=== PATIENT | male | born 1955 | race Caucasian/White ===

== ENCOUNTER 2025-05-08 10:52 | Outpatient (AMB) | payer OTHER, SELFPAY ==
--- NOTE | 2025-05-08 11:02 | A.OFFVIS_ITS ---
Intake Visit Reasons: Neural Foraminal Allergies No Known Allergies Allergy (Verified 05/03/25 08:33) HPI Comments Details: The patient is a 69-year-old male presenting with persistent pain and numbness in the right hip and leg following a fall a year ago. Following the incident, he experienced acute trauma resulting in musculoskeletal pain, swelling of the knee, and numbness on the outer part of the leg. Despite cortisone injections administered to reduce the pain and inflammation, he continues to have residual symptoms in the knee and hip. x-rays have shown degenerative changes in the knee and hip, suggestive of chronic arthritis. The patient has a history of knee swelling relieved by cortisone, and prior MRI imaging did not reveal significant nerve issues, although nerve involvement was suspected. These symptoms primarily manifest if he is in an incorrect position, risking further swelling and discomfort. The patient?s recent falls, although not recurrent, are a concern due to leg instability. He denies any radiating pain down the leg, emphasizing a localized painful area at the top of the hip. [facility] Family History (Updated 05/03/25 @ 08:33 by Ben Mendoza CMA) Father Nicotine dependence Heart failure Diabetes mellitus Mother Hypertension Son Asthma Diabetes mellitus Social History (Updated 05/03/25 @ 08:30 by Ben Mendoza CMA) Alcohol intake: never Patient Tobacco Use Status: Never used Tobacco Use of substances other than those prescribed or required for medical reasons: No Review of Systems Const Details: - Musculoskeletal: Reports right-sided lower back pain, knee swelling, hip discomfort, and occasional leg instability. - Neurological: Reports numbness on the outer side of the right leg. Denies radiating pain. - General: Denies recent falls, though had occurrences near the onset of symptoms. Physical Exam Neuro Other: Mental Status: Alert and oriented to person, place, and time. Normal attention. Normal spontaneous speech, fluency, and comprehension. No obvious issues with mood and memory. Affect is appropriate. Cranial Nerves: CN II: Visual deleon full to confrontation, visual acuity intact. CN III, IV, : Pupils equal, round, reactive to light and accommodation. Extraocular movements are normal. CN V: Facial sensation is normal. CN VII: Facial movements symmetrical. CN VIII: Hearing intact to bedside conversation is normal. CN IX, X: Palate elevates symmetrically. CN XI: Shoulder shrug and head turn symmetrical. CN XII: Tongue midline without atrophy or fasciculations. Deep tendon reflexes are absent. He is walking cautiously with a cane. Extrapyramidal: Full facial expressions and blinking. No rigidity. Movements are appropriate with no tremor or abnormality. Speech: Normal; no dysarthria or tremor. Assessment & Plan Assessment & Plan (1) Low back pain: Comment: MR LS spine WO at [facility] in Oct 2024: DJD XR R knee and hip at [facility] in 2023: No sig pathology reported Code(s): M54.50 - Low back pain, unspecified Category: Medical Qualifiers: Chronicity: chronic Back pain laterality: right Sciatica presence: without sciatica Qualified Code(s): M54.50 - Low back pain, unspecified; G89.29 - Other chronic pain Plan Impression: Musculoskeletal right hip area and knee area pain with sometimes leg giving away Rec: Education of the condition EMG/NCS R leg to r/o radiculapathy He was educated about problem with joints especially right hip and knee joint that might have started after he fell and twisted these joints. Sometime mild pathology is not visible on imaging. He has been getting injection treatment for right knee joint. Hip pain continuous though it is not continuous and maybe not that bad. He was more concerned about neurological problem. His examination revealed absent reflexes that may or may not be directly contributing to this problem. An EMG nerve conduction study was requested to look at his peripheral nerves and especially rule out radiculopathy Orders: Orders NE nerve conduction velocity Today G89.29 - Other chronic pain, M54.50 - Low back pain, unspecified NE electromyogram (EMG) Today G89.29 - Other chronic pain, M54.50 - Low back pain, unspecified Coding Level of Care Code New Pt Level 4 (89054) Diagnoses Chronic right-sided low back pain without sciatica M54.50; G89.29 Chronicity: chronic Back pain laterality: right Sciatica presence: without sciatica
--- OUTSIDE RECORDS SUMMARY | 2025-05-08 13:28 | XMS_ITS | Clinical Summary ---
Author Organization [facility] Address [address] [place], [place] [id number] Phone Care Team Providers Care Signaling Project Engineer Name Role Phone Gabriel Horton MD Unavailable [phone] Gabriel Horton MD Primary Care Provider [phone] Allergies No known active allergies Medications FREESTYLE LITE METER meter kit Use to check blood glucose up to 7 times a week 1 each 12/15/19 19 Active FREESTYLE LITE Strp strips 1 each by Miscellaneous route as needed (Check up to 7 times a week, some fasting and some meal sets). 50 strip 6 12/15/19 19 Active albuterol 90 mcg/actuation inhaler Inhale 2 puffs into the lungs every 6 (six) hours as needed for wheezing. 54 g 3 04/14/20 22 Active cholecalciferol (VITAMIN D3) 400 unit tablet Take 1 tablet (400 Units total) by mouth daily. 90 tablet 11 07/03/20 22 Active methylPREDNISolon e (MEDROL DOSEPACK) 4 mg tablet FOLLOW PACKAGE DIRECTIONS 21 tablet 10/26/19 23 Active glipiZIDE (GLUCOTROL XL) 10 MG 24 hr tabletIndications :Uncontrolled type 2 diabetes mellitus with hyperglycemia TAKE 1 TABLET(10 MG) BY MOUTH DAILY 60 tablet 06/24/20 23 Active Active Problems Problem Noted Date Diagnosed Date Acute pain of left shoulder 07/06/2022 Assessment & Plan (07/06/2022 8:51 AM EST): Rest as needed may use ice/heat for pain Ibuprofen 400mg every 8 hours as needed elevation stretching exercises as discussed Will get an x-ray of the left shoulder. Medrol Dosepak take as directed. Referral to physical therapy. Follow-up no improvement symptoms 6 to 8 weeks sooner worsening COVID-19 02/21/2022 Assessment & Plan (02/21/2022 12:16 PM EDT): Patient tested positive using at home rapid COVID-19 test on 02/19/2022. Patient had symptomatic onset on 02/19/2022. Discussed with patient that they qualify for Paxlovid prescription based on their age and medical history. After shared decision-making discussion with patient including discussion of emergency use authorization patient would like to take Paxlovid. Drug drug interaction check performed using [facility] management of Paxlovid drug drug interactions worksheet. Drug drug interactions noted: None. Patient will also bring complete list of their medications to the pharmacy for final drug drug interaction check with dispensing pharmacist. Renal function reviewed and found to be normal, no renal dose adjustment required.. Discussed with patient that they should isolate at home for 5 days after symptom onset or until afebrile for 24 hours without use of antipyretic medications. After end of isolation should wear mask around others for 5 days. Continue with conservative management at home including rest, hydration, [id number]-[id number] cold flu medications as needed. Patient follow-up with our office immediately for any new or worsening symptoms or concerns. Discussed potential for rebound symptoms. Patient to follow-up with our office if rebound symptoms noted. ER as needed for any severe symptoms. Right hand pain 03/26/2021 Assessment & Plan (03/26/2021 4:03 PM EDT): Patient endorses approximately 6 weeks ago started to fall caught self with his hand on the counter since then has had a burning sensation in his right hand. We will get an x-ray of the right hand. Rest as needed may use ice/heat for pain Ibuprofen 400mg every 8 hours as needed elevation stretching exercises as discussed Patient follow-up no improvement symptoms 6 to 8 weeks or worsening Severe obstructive sleep apnea 03/11/2021 Overview (03/11/2021): PSG 03/02/2021 Prominent snoring Extreme fragmentation of sleep continuity AHI 95.2/hour SPO2 gorge 75% Assessment & Plan (03/26/2022 12:47 PM EDT): Uses CPAP nightly Uncontrolled type 2 diabetes mellitus with hyper glycemia 12/13/2018 Assessment & Plan (07/06/2022 8:51 AM EST): A1c in office today 8.2 improved over previous greater than 10. Discussed diabetic diet exercise weight loss. Congratulated patient not having two-point reduction of his A1c with a goal to get below 7 within the next 3 months. Will increase glipizide 10 mg daily. Patient to continue monitor blood sugars daily. Needs an eye exam referral for ophthalmology placed. Foot care discussed. Patient follow-up 3 months Assessment & Plan (03/26/2022 12:48 PM EDT): Patient is A1c 10.7 today in office. Previous was 7.7. Patient has had good success in the past when he follows diabetic diet and exercises with bringing down his A1c and controlling diabetes. Education provided. Diabetic diet exercise weight loss. Patient is unable to tolerate metformin due to GI side effects and other medications such as Trulicity and Jardiance were cost prohibitive. Start glipizide 5 mg daily patient to check blood sugars: Repeat readings in 2 weeks we will adjust glipizide accordingly. Declined referral to modern languages professor. Patient follow-up in 3 months Assessment & Plan (03/26/2021 4:03 PM EDT): Patient unable to tolerate Metformin even at lower doses due to GI side effects. Patient did not start taking Trulicity as the co-pay was too expensive also tried Jardiance co-pay is less but still too expensive. Patient endorses checking his blood sugars at home runs 90s to 100 in the morning states that he does not eat sugary foods drinks watch the carbs and getting some exercise. We will check A1c if still elevated can try glipizide as an inexpensive alternative. Assessment & Plan (12/27/2020 10:27 AM EDT): Patient is A1c 9. We will start Trulicity 0.75 weekly injections. Patient has follow-up with modern languages professor in January. Monitor blood sugars before breakfast before dinner daily. Bring readings with him to his appointment. Discussed diabetic diet exercise weight loss. Patient has follow-up with me in March Assessment & Plan (12/25/2020 5:26 PM EDT): Patient 2 years ago A1c 3.0 diagnosed with diabetes. Started on Metformin follow modern languages professor once and never followed up in 2 years. Patient states he was unable to tolerate the Metformin even at 500 mg is given GI side effects. Patient endorses he eats a lot of sugary foods drinks has a hard time staying away from also eats a lot of carbohydrates no exercise. Has gained 10 pounds over the past couple years. He is overdue for an eye exam discussed with patient needs to go every year for an eye exam which is scheduled here soon as possible. Check A1c albumin creatinine levels pending lab results will determine course of treatment. Discussed diabetic diet exercise weight loss. Recommend he have a follow-up appointment with modern languages professor. Referrals been placed Discussed with patient is very important that he make and keep follow-up appointments to manage his diabetes. Encounter for Medicare annual wellness exam 10/16 Assessment & Plan (03/26/2022 12:45 PM EDT): DiscussedHealthy diet Regular exercise Regular dental/eye exams Regular use of seat belt, sunscreen and skin checks, safe sexual practices Assessment & Plan (12/25/2020 5:27 PM EDT): DiscussedHealthy diet Regular exercise Regular dental/eye exams Regular use of seat belt, sunscreen and skin checks, safe sexual practices Colonoscopy ordered. One-time hep C screening ordered. Pneumonia vaccination given Assessment & Plan (11/03/2018 6:44 PM EDT): Discussed Healthy diet Regular exercise Regular dental/eye exams Regular use of seat belt sunscreen and skin checks safe sexual practices] Asthma 11/03/2018 Assessment & Plan (12/25/2020 5:26 PM EDT): Asthma well-controlled infrequent use of inhaler Assessment & Plan (11/03/2018 6:46 PM EDT): Pt endorses hx of asthma Has not had an inhaler in years Feels needs it now and then rx albuterol inhaler Morbid obesity 11/03/2018 Assessment & Plan (03/26/2022 12:47 PM EDT): Healthy diet with lots of vegetables and fruits. Atleast 3-4 servings a day of each , increased water intake , and cut down on carbs and fats. Limit portion size and no late night eating Assessment & Plan (12/25/2020 5:25 PM EDT): Healthy diet with lots of vegetables and fruits. Atleast 3-4 servings a day of each , increased water intake , and cut down on carbs and fats. Limit portion size and no late night eating Assessment & Plan (11/03/2018 6:46 PM EDT): Healthy diet with lots of vegetables and fruits. Atleast 3-4 servings a day of each , increased water intake , and cut down on carbs and fats. Limit portion size and no late night eating Resolved Problems Problem Noted Date Diagnosed Date Resolved Date Type 2 diabetes mellitus wit hout complication, without long-term current use of insulin 11/03/2018 11/03/2018 Pre-diabetes 11/03/2018 12/25/2020 Assessment & Plan (11/03/2018 6:45 PM EDT): Diabetic diet Exercise wt loss Check labs Immunizations Immunization Administration Dates Next Due COVID-19 (Pre-06/08) Steffanie Vaccine, rS-Ad26, PF 01/17/2021 INFLUENZA, SPLIT VIRUS, TRIVALENT PF 06/07/2013, 05/14/2012,05/06/2011 INFLUENZA, SPLIT VIRUS, TRIV ALENT W/ PRESERVATIVE IM 06/28/2010 Influenza trivalent preserva tive free intradermal 06/30/2014 Influenza, Unspecified Formulation 03/26/2010 Pneumococcal polysaccharide PPSV23 12/24/2020, Td, unspecified formulation 10/13/2008 Family History Medical History Relation Comments Diabetes Father Hypertension Mother Relation Status Comments Father Mother Social History Tobacco Use Types Packs/Day Years Used Date Smoking Tobacco: Never Smokeless Tobacco: Never Tobacco Cessation:Counseling Given: Not Answered Alcohol Use Standard Drinks/Week Comments Not Currently 0 (1 standard drink = 0.6 oz pur e alcohol) Child or Family Care Answer Date Record ed Do you have problems with on e of the following making it difficult for you to work, study, or receive health care? No 03/24/2022 Education Answer Date Recorded Are you interested in more education? Not on debo e 03/30/2024 Are you concerned about learning? Not on file 03/30/2024 No 03/30/2024 No 03/30/2024 Food Answer Date Recorded Within the past 6 months we worried whether our food would run out before we got money to buy more. Never True 03/24/2022 Within the past 6 months the food we bought just didn't last and we didn't have enough money to get more. Never True Residential Stability Answer Date Recor ded What is your housing situation today? I have steven sing 03/24/2022 How many times have you move d in the past 12 months? Zero (I did not move) 03/24/2022 Paying for Meds Answer Date Recorded Do you have trouble paying for medicines? No 03/24/2022 Paying Utility Bills Answer Date Record ed Do you have trouble paying your heating or elect ricity bill? No 03/24/2022 Transportation Answer Date Recorded Has the lack of transportati on kept you from medical appointments or from getting medications? No 03/24/2022 Unemployment Answer Date Recorded Are you currently unemployed or working on a part-time or temporary basis, and looking for work? No 03/24/2022 Digital Access Answer Date Recorded No 01/09/2023 No 01/09/2023 No 01/09/2023 Reliable internet access at home? Not on file 01/09/2023 Device with a working camera? 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 Not on file Not on file Not o n file Last Filed Vital Signs Vital Sign Reading Time Taken Comments Blood Pressure 134/90 07/03/2022 3:41 PM EST Pulse 88 07/03/2022 3:41 PM EST Temperature 36.3 C (97.3 F) 07/03/2022 3:41 PM EST Respiratory Rate 20 08/04/2019 2:32 PM EST Oxygen Saturation 97% 07/03/2022 3:41 PM EST Inhaled Oxygen Concentration - - Weight 110.5 kg (243 lb 9.6 oz) 07/03/2022 3:41 PM EST Height 160 cm (5' 2.99 ) 07/03/2022 3:41 PM EST Body Mass Index 43.16 07/03/2022 3:41 PM EST Plan of Treatment Health Maintenance Due Date Last Done Comments COLOGUARD 1999 FIT TEST 1999 FOBT 1999 SIGMOIDOSCOPY 1999 VIRTUAL COLONOSCOPY 1999 ZOSTER VACCINES (1 of 2) 2004 RSV VACCINE (1 - Risk 60-74 years 1-dose series) 2014 Adult Td,Tdap Booster 10/13/2018 10/13/2008 DIABETIC EYE EXAM 11/05/2018 PNEUMOCOCCAL VACCINES (50+ years) (2 of 2 - PCV) 12/24/2021 12/24/2020, 09/28/2012 HEMOGLOBIN A1C 10/03/2022 07/03/2022, 03/17, 03/25/2022, Additional history exists BLOOD PRESSURE 12/31/2022 07/03/2022 DEPRESSION SCREENING 03/24/2023 03/24/2022 LIPID PANEL 03/27/2023 03/27/2022, 12/15, 12/25/2020, Additional history exists URINE MICROALBUMIN/CREATININE RATIO 03/27/2023 03/27/2022, 12/25/2020, 12/25/2020, Additional history exists INFLUENZA VACCINE (#1) 2025 4, 06/07/2013, 05/14/2012, Additional history exists COVID-19 VACCINE (2 - season) 2025 01/17/2021 COLONOSCOPY 01/25/2031 01/25/2021, 11/13/2010 COLORECTAL CANCER SCREENING 01/25/2031 HEPATITIS C SCREENING Completed 12/25/2020, 021 SMOKING STATUS SCREENING (Once After 26 Yrs) Completed 07/03/2022 HEPATITIS A VACCINES Aged Out No long er eligible based on patient's age to complete this topic HIB VACCINES Aged Out No longer eligi ble based on patient's age to complete this topic MENINGOCOCCAL VACCINES (ACWY) Aged Out No longer eligible based on patient's age to complete this topic MENINGOCOCCAL VACCINES (B) Aged Out N o longer eligible based on patient's age to complete this topic Medical Devices Not on file Procedures Procedure Name Priority Date/Time Associated Diagnosis Comments POCT HEMOGLOBIN A1C Routine 07/03/2022 4 :13 PM EST Uncontrolled type 2 diabetes mellitus with hyperglycemia MICROALBUMIN/CREATIN INE RATIO, RANDOM URINE Routine 03/27/2022 3:13 PM EDT Uncontrolled type 2 diabetes mellitus with hyperglycemia LIPID PANEL Routine 03/27/2022 3:13 PM EDT Uncontrolled type 2 diabetes mellitus with hyperglycemia Encounter for Medicare annual wellness exam COLONOSCOPY FOR RESULT ENTRY ONLY Routine 01/25/2021 HEPATITIS C ANTIBODY, QUALITATIVE Routine 12/25/2020 1:50 PM EDT Encounter for Medicare annual wellness exam from Last 3 Months or Most Recently Relevant to Health Maintenance Results * (ABNORMAL) POCT Hemoglobin A1c (07/03/2022 4:13 PM EST) Hemoglobin A1c 8.2(A) 4.2 - 5.8 % [facility] ORG[facility] Other 07/03/2022 4:13 PM EST Johnathan BECKHAMP POINT OF CARE JODIE T ORDERABLES Final Result [facility] ORG-ONE [facility] [address] [place] [address], [facility] * (ABNORMAL) Microalbumin/creatinine ratio, random urine (03/27/2022 3:13 PM EDT) Urine Microalbumin 41.2(H) 0 - 30 mg/L [facility] URINE CREATININE 69 30 - 125 mg/dL [facility] MICROALB/CRE RATIO 59.7(H) <30.0 mg/g Cre [facility] Urine (Urine) 03/27/2022 3:1 3 PM EDT 03/27/2022 3:46 PM EDT Johnathan BECKHAMP URINE ORDERABLES Final Result Performing Organization Address City/[facility]/ZIP Co de Phone Number [address] * Lipid panel (03/27/2022 3:13 PM EDT) [facility] HDL 42 >39 mg/dL [facility] CHOLESTEROL 159 0 - 199 mg/dL [facility] TRIGLYCERIDES 91 0 - 150 mg/dL [facility] LDL 99 50 - 129 mg/dL [facility] NON-HDL CHOLESTEROL 117 mg/dL [facility] Comment:Reference Range: The non-HDL Cholesterol value should not exceed the desired LDL-C by more than 30 mg/dl. Blood 03/27/2022 3:13 PM EDT 03/27/2022 3:33 PM EDT Johnathan FERNANDEZ LAB BLOOD ORDERAB LES Final Result [id number] [place] [address] * COLONOSCOPY FOR RESULT ENTRY ONLY (01/25/2021) Pathologist [facility] Colonoscopy Normal Comment:[facility] Historical Provider HEALTH MAINTENANCE Final Result * Hepatitis C antibody, qualitative (12/25/2020 1:50 PM EDT) HCV ANTIBODY Non-Reacti ve Non-Reacti ve [facility] Blood 12/25/2020 1:50 PM EDT 12/25/2020 2:05 PM EDT Avnizachary Cruz Kerenheather PERSONNEL TECHNICIAN LAB BLOOD ORDERAB LES Final Result [facility] [address] [place] [address], [facility] from Last 3 Months or Most Recently Relevant to Health Maintenance Insurance MEDICARE PART A & B [facility] [place] [address] MEDICARE PART A & B Member Subscriber Plan / Payer (Ef fective 2019-Present) Name:Boo Quinn Member ID:[id number] Relation to Subscriber:Self Name:Boo Quinn Subscriber ID:[id number] Payer ID:[id number] Group ID:Not on file Type:Medicare Address: [facility] [employer] [facility] [address] MEDICARE REPLACEMENT MEDICARE PART A & B MEDICARE REPLACEMENT MEDICARE PART A & B Member Subscriber Plan / Payer (Ef fective 2019-Present) Name:Boo Quinn Member ID:[id number] Relation to Subscriber:Self Name:Boo Quinn Subscriber ID:[id number] Payer ID:[id number] Group ID:Not on file Type:Medicare Address: [employer] [address] [place] [address] MEDICARE REPLACEMENT MEDICARE PART A & B Member Subscriber Plan / Payer (Ef fective 2019-Present) Name:Boo Quinn Member ID:[id number] Relation to Subscriber:Self Name:Boo Quinn Subscriber ID:[id number] Payer ID:[id number] Group ID:Not on file Type:Medicare Address: [employer] [address] [place] [address] MEDICARE REPLACEMENT MEDICARE PART A & B [facility] MEDICARE REPLACEMENT MEDICARE PART A & B [facility] MEDICARE REPLACEMENT MEDICARE PART A & B [facility] MEDICARE REPLACEMENT MEDICARE PART A & B [facility] [place] [address] Care Teams Signaling Project Engineer Relationship Specialty Start Date End Date Gabriel Horton MD [address] [place] [id number] [email or web address] PCP - General Internal Medicine 03/26/21 Gabriel Horton MD [address] [place] [id number] [email or web address] Internal Medicine 08/25/19 Additional Source Comments The information contained in this document represents components of the legal health record. It is not the complete legal health record.[facility]
--- OUTSIDE RECORDS SUMMARY | 2025-05-08 13:28 | XMS_ITS | Encounter Summary ---
Author Organization [facility] Address [address] [place], [place] [id number] Phone Care Team Providers Care General Partner Name Role Phone Gabriel Horton MD Primary Care Provider [phone] Gabriel Horton MD Unavailable [phone] Radha Massey MD Primary Care Provider [phone] Gabriel Horton MD Primary Care Provider [phone] Gabriel Horton MD Unavailable [phone] Encounter Details Date Type Department Care Team (Late st Contact Info) Description 12/30/2020 Procedure [facility] - Endoscopy - [address] [phone] Social History Tobacco Use Types Packs/Day Years Used Date Smoking Tobacco: Never Smokeless Tobacco: Never Alcohol Use Standard Drinks/Week Comments Not Currently 0 (1 standard drink = 0.6 oz pur e alcohol) Sex and Gender Information Value Date Recorded Sex Assigned at Not on file Legal Sex Male 4:50 PM EST Gender Identity Not on file Sexual Orientation Not on file 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 Not on file Not on file Not o n file documented as of this encounter Plan of Treatment Not on file documented as of this encounter Visit Diagnoses Not on filedocumented in this encounter Additional Health Concerns Infection Onset Date Last Indicated Resolved Time CoV-Presumed 02/19/2022 02/19/2022 03/12/2022 1:22 AM EDT Assessment Noted Time PHQ-2 Depression Total Score: 0 12/28/19 9:53 AM EDT documented as of this encounter Care Teams General Partner Relationship Specialty Start Date End Date Gabriel Horton MD [address] [place] [id number] [email or web address] PCP - General Internal Medicine 08/25/19 03/17/21 Radha Massey MD [address] [place] [address] [place] [id number] PCP - General Internal Medicine 03/18/21 03/25/21 Gabriel Horton MD [address] [place] [address] [email or web address] PCP - General Internal Medicine 03/26/21 Gabriel Horton MD [address] [place] [address] [email or web address] Internal Medicine 08/25/19 Gabriel Horton MD [address] [place] [address] [email or web address] Insurance Assigned Provider 11/23/21 05/24/22 documented as of this encounter Additional Source Comments The information contained in this document represents components of the legal health record. It is not the complete legal health record.[facility]
--- OUTSIDE RECORDS SUMMARY | 2025-05-08 13:29 | XMS_ITS | Clinical Summary ---
Author Organization [facility] [address] [facility] Address [address] [place] [address] Phone Care Team Providers Care Supervisor Scrap Preparation Name Role Phone Tata Castro MD Primary Care Provider Allergies No known active allergies Medications IBUPROFEN ORAL Take by mouth. Active famotidine (PEPCID) 20 mg tablet Take 1 tablet (20 mg total) by mouth 2 (two) times a day if needed for heartburn. 06/03/20 24 Active cholecalcifero l (VITAMIN D-3) 50 mcg (2,000 unit) capsule Take by mouth. Activ e blood sugar diagnostic (FreeStyle Lite Strips) test strip 1 each by Other route once daily as needed. 12/15/19 19 Active blood-glucose meter kit Use to check blood glucose up to 7 times a week 12/15/19 19 Active diclofenac (VOLTAREN) 75 mg EC tabletIndicati ons:Acute pain of right shoulder,Strai n of abdominal muscle, initial encounter Take 1 tablet (75 mg total) by mouth 2 (two) times a day. Do not crush, chew, or split. 60 tablet 12/04/19 25 Active albuterol HFA (ProAir HFA) 90 mcg/actuation inhaler Inhale 2 puffs by mouth every 4 (four) hours if needed for wheezing or shortness of breath. 8.5 g 03/29/20 25 026 Active glipiZIDE (Glucotrol XL) 10 mg 24 hr tabletIndicati ons:Type 2 diabetes mellitus with diabetic microalbuminur ia, without long-term current use of insulin ([facility] [place], [facility] V28) Take 1 tablet (10 mg total) by mouth 2 (two) times a day. Do not crush, chew, or split. 180 each 03/31/20 25 Active losartan (COZAAR) 25 mg tablet TAKE 1 TABLET BY MOUTH DAILY 90 tablet 1 04/10/20 25 Active fluticasone propionate (FLONASE) 50 mcg/actuation nasal spray Administer 2 sprays into each nostril 1 (one) time each day. 16 g 04/22/20 25 Active losartan (COZAAR) 25 mg tablet TAKE 1 TABLET BY MOUTH DAILY 90 tablet 1 08/30/19 25 025 Discontinued amoxicillin-cl avulanate (AUGMENTIN) 875-125 mg per tablet Take 1 tablet by mouth 2 (two) times a day for 10 days. 20 each 04/22/20 25 025 Active Problems Problem Noted Date Diagnosed Date Class 2 severe obesity with serious comorbidity and body mass index (BMI) of 39.0 to 39.9 in adult 03/29/2025 Deviated septum 03/29/2025 Primary hypertension 07/29/2024 Type 2 diabetes mellitus wit h diabetic microalbuminuria, without long-term current use of insulin ([facility] [place], [facility] V28) 07/29/2024 Resolved Problems Problem Noted Date Diagnosed Date Resolved Date Elevated blood-pressure read ing without diagnosis of hypertension 03/13/2023 03/29/2025 Type 2 diabetes mellitus wit hout complication, without long-term current use of insulin ([facility] [place], [facility] V28) 03/13/2023 Encounters Date Type Department Care Team Description 04/22/2025 3:45 PM EDT Office Visit Walk-In Clinic - [address] [address] Rafa West PA Acute bacterial rhinosinusitis (Primary Dx) 03/29/2025 1:30 PM EDT Office Visit Adult Medicine - [address] [address] Anthony, Parth D, PA Type 2 diabetes mellitus with diabetic microalbuminuria, without long-term current use of insulin ([facility] V24, [facility] V28) (Primary Dx); Class 2 severe obesity with serious comorbidity and body mass index (BMI) of 39.0 to 39.9 in adult, unspecified obesity type ([facility] V24, [facility] V28); Benign hypertension; Deviated septum; Screening for malignant neoplasm of prostate; Need for pneumococcal 20-valent conjugate vaccination from Last 3 Months Immunizations Name Administration Dates Next Due Influenza trivalent, 0.5mL ( Fluad) 65yo and older 06/03/2024,09/24/2023 Influenza trivalent, 0.5mL ( Fluzone High-dose) 65yo and older 09/24/2023 Influenza trivalent, 0.5mL, preservative free (Fluarix; FluLaval; Fluzone) ages 6mo and older (Afluria) 3 years and older 06/30/2014,06/07/2013,05/14/2012,05/06,03/26/2010 Influenza trivalent, with pr eservative (Fluzone; Afluria) 6mo and older 06/28/2010 Pneumococcal conjugate 20 va lent (Prevnar 20, PCV 20) 2mo and older 03/29/2025 Pneumococcal polysaccharide 23 valent (Pneumovax 23) 2yo and older 12/24/2020,09/28/2012 Td Tetanus diptheria (Tdvax) 7yo and older 10/13/2008 Tdap Tetanus diptheria acell ular pertussis (Boostrix; Adacel) 7yo and older 03/13/2023 Surgical History Surgery Date Site/Laterality Comments ANKLE SURGERY Right PROCEDURE: HISTORICAL ANKLE SURGERY UMBILICAL HERNIA REPAIR PROCEDURE: LAP UMBILICAL HERNIA REPAIR APPENDECTOMY PROCEDURE: HISTORICAL APPENDECTOMY Medical History Medical History Date Comments Type 2 diabetes mellitus wit hout complications ([facility] V24, [facility] V28) DX:Type 2 [place] betes mellitus without complications (HCC) Mild intermittent asthma, uncomplicated DX:Mild intermittent asthma, uncomplicated Ankle fracture DX:Ankle fractur e; COMMENT: Right Appendicitis DX:Appendicitis Family History Medical History Relation Name Comments No Known Problems Brother 1 Diabetes Father Heart failure Father Nicotine Dependence Father Hypertension Mother No Known Problems Sister 1 No Known Problems Sister 2 No Known Problems Sister 3 No Known Problems Sister 4 Asthma Son 1 Asthma Son 2 Other: type 1 diabetes Son 2 Asthma Son 3 Diabetes Son 3 Relation Name Status Comments Brother 1 Alive Brother 2 Alive Daughter Alive Father Maternal Grandfather Maternal Grandmother Mother Alive Paternal Grandfather Paternal Grandmother Sister 1 Alive Sister 2 Alive Sister 3 Alive Sister 4 Alive Son 1 Alive Son 2 Alive Son 3 Alive Social History Tobacco Use Types Packs/Day Years Used Date Smoking Tobacco: Never Smokeless Tobacco: Never Tobacco Cessation:Counseling Given: Not Answered Alcohol Use Standard Drinks/Week Comments Never 0 (1 standard drink = 0.6 oz pur e alcohol) Housing Instability Answer Date Recorde d Are you worried that in the next 2 months you may not have stable housing? No 12/02/2024 Food Access & Nutrition Answer Date Rec orded Do you have access to a vari ety of food including fruits and vegetables? Yes 12/02/2024 Access to Healthcare Answer Date Record ed Within the last 3 months, ho w many times did you visit the emergency department for your medical care? 0 12/02/2024 Health Literacy Answer Date Recorded How often do you need to hav e someone help you when you read instructions, pamphlets, or other written material from your doctor or pharmacy? Never 12/02/2024 Caregiver: How often do you need to have someone help you when you read instructions, pamphlets, or other written material from your doctor or pharmacy? Not on file 12/02/2024 Financial Risk Answer Date Recorded How hard is it for you to pa y for the very basics like food, housing, medical care, and air conditioning / heating? Somewhat hard 12/02/2024 Transportation Answer Date Recorded Has the lack of transportati on kept you from meetings, work, or from getting things needed for daily living? No Has the lack of transportati on kept you from medical appointments or from getting medications? No 12/02/2024 Social Isolation Answer Date Recorded How often do you feel lonely or isolated from th ose around you? Never 12/02/2024 Food Risk Answer Date Recorded Within the past 12 months we worried whether our food would run out before we got money to buy more. Never true 12/02/2024 Within the past 12 months th e food we bought just didn't last and we didn't have money to get more. Never true 12/02/2024 Dependent Care Answer Date Recorded Do you need help finding or paying for care for your loved ones. For example, children's court magistrate or elderly care for an older adult? No 12/02/2024 Education Answer Date Recorded Do you think completing more education or training, like finishing a GED, going to college, or learning a trade, would be helpful for you? No 12/02/2024 Employment and Income Answer Date Recor ded During the last four weeks, have you been actively looking for work? No 12/02/2024 Living Situation Answer Date Recorded What is your living situation? 0 12/02/2024 Sex and Gender Information Value Date Recorded Sex Assigned at Not on file Legal Sex Male 8:58 PM EST Gender Identity Not on file Sexual Orientation Not on file Obstetrics History Last Filed Vital Signs Vital Sign Reading Time Taken Comments Blood Pressure 136/74 04/22/2025 3:46 PM EDT Pulse 89 04/22/2025 3:46 PM EDT Temperature 36.4 C (97.6 F) 04/22/2025 3:46 PM EDT Respiratory Rate 16 09/23/2024 12:41 PM EST Oxygen Saturation 96% 04/22/2025 3:46 PM EDT Inhaled Oxygen Concentration - - Weight 109 kg (240 lb) 03/29/2025 1:13 PM EDT Height 165.1 cm (5' 5 ) 03/29/2025 1:13 PM EDT Body Mass Index 39.94 03/29/2025 1:13 PM EDT Plan of Treatment Upcoming Encounters Date Type Department Care Team (Late st Contact Info) Description 06/20/2025 12:00 PM EST Office Visit Adult Medicine [address] [phone] Parth Cruz PA [address] [place] [id number] 07/04/2025 2:00 PM EST Office Visit Adult Medicine [address] [phone] Tata Castro MD [address] [place], [place] Health Maintenance Due Date Last Done Comments Diabetes: Annual Foot Exam 1964 Zoster Vaccines (1 of 2) 2004 RSV Immunization Adult Patients (1 - Risk 60-74 years 1-dose series) 2014 Colorectal Cancer Screening: Colonoscopy 09/11/2023 Medicare Annual Wellness Visit 09/11/2023 Diabetes: Annual Retina Eye Exam 09/01/2024 09/01/2023 COVID-19 Vaccine (2 - season) 2025 01/17/2021 Influenza Vaccine (#1) 2025 , 09/24/2023, 09/24/2023, Additional history exists Diabetes: Annual Urine Albumin-Creatinine Ratio (uACR) 07/29/2025 07/29/2024, 06/03/2024, 03/27/2022, Additional history exists Diabetes: Blood Sugar Control Test (HGBA1C) 09/29/2025 03/29/2025, 07/29/2024, 06/03/2024, Additional history exists Social Influencers of Health Screening 12/02/2025 12/02/2024 Diabetes: Annual GFR (Glomerular Filtration Rate) 03/29/2026 03/29/2025, 07/29/2024, 06/03/2024, Additional history exists Falls Risk Assessment 03/29/2026 03/29/2025, 025 Hypertension/CHF/CAD Annual BMP Blood Test 03/29/2026 03/29/2025, 07/29/2024, 06/03/2024, Additional history exists Cholesterol Screening (Lipid Panel) 07/29/2029 07/29/2024, 06/03/2024, 06/03/2024, Additional history exists DTaP,Tdap,and Td Vaccines (3 - Td or Tdap) 03/13/2033 03/13/2023, 10/13/2008 Hepatitis C Screening Completed 03/13/2023, 021 Depression Screening Completed 03/29/2025 Pneumococcal Vaccine: 50+ Years Completed 03/29/2025, 12/24/2020, 09/28/2012 HIB Vaccines Aged Out No longer eligi ble based on patient's age to complete this topic HPV Vaccines Aged Out No longer eligi ble based on patient's age to complete this topic Hepatitis A Vaccines Aged Out No long er eligible based on patient's age to complete this topic Hepatitis B Vaccines Aged Out No long er eligible based on patient's age to complete this topic IPV Vaccines Aged Out No longer eligi ble based on patient's age to complete this topic MMR Vaccines Aged Out No longer eligi ble based on patient's age to complete this topic Meningococcal ACWY Vaccine Aged Out N o longer eligible based on patient's age to complete this topic Meningococcal B Vaccine Aged Out No l onger eligible based on patient's age to complete this topic RSV Immunization Patients Under 20 months Aged Out No longer eligible based on patient's age to complete this topic Varicella Vaccines Aged Out No longer eligible based on patient's age to complete this topic Procedures Procedure Name Priority Date/Time Associated Diagnosis Comments PROSTATE SPECIFIC ANTIGEN SCREEN Routine 03/29/2025 1:53 PM EDT Screening for malignant neoplasm of prostate HEMOGLOBIN A1C Routine 03/29/2025 1:53 PM EDT Type 2 diabetes mellitus with diabetic microalbuminuria, without long-term current use of insulin ([facility] V24, [facility]/H[facility] V28) Benign hypertension Class 2 severe obesity with serious comorbidity and body mass index (BMI) of 39.0 to 39.9 in adult, unspecified obesity type ([facility]/HCC V24, CMS/HCC V28) COMPREHENSIVE METABOLIC PANEL Routine 03/29/2025 1:53 PM EDT Type 2 diabetes mellitus with diabetic microalbuminuria, without long-term current use of insulin (CMS/HCC V24, CMS/HCC V28) Benign hypertension Class 2 severe obesity with serious comorbidity and body mass index (BMI) of 39.0 to 39.9 in adult, unspecified obesity type (CMS/HCC V24, CMS/HCC V28) POC GLUCOSE Routine 03/29/2025 1:32 PM EDT Type 2 diabetes mellitus with diabetic microalbuminuria, without long-term current use of insulin ([facility] V24, [facility] V28) MICROALBUMIN CREATININE URINE RATIO Routine 07/29/2024 3:48 PM EST Type 2 diabetes mellitus with diabetic microalbuminuria, without long-term current use of insulin ([facility] V24, [facility] V28) Primary hypertension Falls frequently Neural foraminal stenosis of lumbar spine LIPID PANEL WITH REFLEX TO DIRECT LDL Routine 07/29/2024 3:45 PM EST Type 2 diabetes mellitus with diabetic microalbuminuria, without long-term current use of insulin ([facility] V24, [facility] V28) Primary hypertension Falls frequently Neural foraminal stenosis of lumbar spine DIABETES EYE EXAM Routine 09/01/2023 HEPATITIS C SCREENING Routine 03/13/2023 from Last 3 Months or Most Recently Relevant to Health Maintenance Results * Prostate specific antigen screen (03/29/2025 1:53 PM EDT) PSA 1.74 0.00 - 4.00 ng/mL LAB CHEMISTRY METHOD 03/29/2025 7:03 PM EDT [facility] Blood Venous blood specimen / Unknown Venipuncture / Unknown 03/29/2025 1:53 PM EDT 03/29/2025 1:53 PM EDT Narrative [facility] - 03/29/2025 7:03 PM EDT The Siemens Advia Centaur Chemiluminescent Immunoassay is used. Results obtained with different assay methods or kits cannot be used interchangeably. Results cannot be interpreted as absolute evidence of the presence or absence of malignant disease. us Parth ZUNIGA LAB BLOOD ORDERABLES Final Re sult [facility] [address] [place] [address], * (ABNORMAL) Hemoglobin A1c (03/29/2025 1:53 PM EDT) Hemoglobin A1C 11.0(H) <6.5 % LAB CHEMISTRY METHOD 03/29/2025 8:42 PM EDT [facility] Mean Bld Glu Estim. 269 mg/dL LAB CHEMISTRY METHOD 03/29/2025 8:42 PM [facility] Blood Venous blood specimen / Unknown Venipuncture / Unknown 03/29/2025 1:53 PM EDT 03/29/2025 1:53 PM EDT us Parth ZUNIGA LAB BLOOD ORDERABLES Final Re sult [facility] [address] [place] [address], [place] [phone] * (ABNORMAL) Comprehensive metabolic panel (03/29/2025 1:53 PM EDT) Sodium 135 133 - 145 mmol/L LAB CHEMISTRY METHOD 03/29/2025 6:32 PM [facility] Potassium 4.1 3.5 - 5.5 mmol/L LAB CHEMISTRY METHOD 03/29/2025 6:32 PM [facility] Chloride 101 96 - 110 mmol/L LAB CHEMISTRY METHOD 03/29/2025 6:32 PM [facility] CO2 29 21 - 32 mmol/L LAB CHEMISTRY METHOD 03/29/2025 6:32 PM [facility] Anion Gap 5 3 - 11 LAB CHEMISTRY METHOD 03/29/2025 6:32 PM [facility] Glucose 271(H) 70 - 100 mg/dL LAB CHEMISTRY METHOD 03/29/2025 6:32 PM [facility] BUN 14 5 - 25 mg/dL LAB CHEMISTRY METHOD 03/29/2025 6:32 PM [facility] Creatinine 0.70 0.70 - 1.30 mg/dL LAB CHEMISTRY METHOD 03/29/2025 6:32 PM [facility] eGFR 99 >=60 mL/min/1. 73m2 LAB CHEMISTRY METHOD 03/29/2025 6:32 PM EDT [facility] Comment:Calculation based on the Chronic Kidney Disease Epidemiology Collaboration (CKD-EPI) equation refit without adjustment for race. BUN/Creatinine Ratio 20.0 LAB CHEMISTRY METHOD 03/29/2025 6:32 PM EDT [facility] Calcium 9.0 8.5 - 10.5 mg/dL LAB CHEMISTRY METHOD 03/29/2025 6:32 PM EDT [facility] AST (SGOT) 35 10 - 42 unit/L LAB CHEMISTRY METHOD 03/29/2025 6:32 PM [facility] ALT (SGPT) 58 10 - 60 unit/L LAB CHEMISTRY METHOD 03/29/2025 6:32 PM EDT [facility] Alkaline Phosphatase 104 42 - 121 unit/L LAB CHEMISTRY METHOD 03/29/2025 6:32 PM EDT [facility] Total Protein 7.5 6.0 - 8.0 g/dL LAB CHEMISTRY METHOD 03/29/2025 6:32 PM EDT [facility] Albumin 3.7 3.2 - 5.0 g/dL LAB CHEMISTRY METHOD 03/29/2025 6:32 PM T [facility] Total Bilirubin 0.4 0.0 - 1.4 mg/dL LAB CHEMISTRY METHOD 03/29/2025 6:32 PM EDT [facility] Blood Venous blood specimen / Unknown Venipuncture / Unknown 03/29/2025 1:53 PM EDT 03/29/2025 1:53 PM EDT us Parth ZUNIGA LAB BLOOD ORDERABLES Final Re sult [facility] [address] [place] [address], * (ABNORMAL) POC glucose manually resulted (03/29/2025 1:32 PM EDT) [facility] Glucose POC 297 mg/dL Blood Capillary blood specimen / Unknown 03/29/2025 1:32 PM EDT Parth ZUNIGA POINT OF CARE TEST ENTER/EDIT ORDERABLES Final Result * (ABNORMAL) Microalbumin creatinine urine ratio (07/29/2024 3:48 PM EST) Pathologist [facility] Creatinine, Urine 107.0 mg/dL LAB CHEMISTRY METHOD 07/29/2024 6:16 PM EST [facility] Microalb, Ur 42.8(H) 0.0 - 29.0 mg/L LAB CHEMISTRY METHOD 07/29/2024 6:16 PM EST [facility] Microalb/Crea t Ratio 40(H) <30 mg/g creat LAB CHEMISTRY METHOD 07/29/2024 6:16 PM EST [facility] Urine Urine specimen obtained by clean catch procedure / Unknown Non-blood Collection / Unknown 07/29/2024 3:48 PM EST 07/29/2024 3:48 PM EST Tata Castro MD LAB URINE ORDERABLES F inal Result [facility] [address] [place] [address], [place] [phone] * (ABNORMAL) Lipid panel with reflex to direct LDL (07/29/2024 3:45 PM EST) [facility] Cholesterol 176 0 - 200 mg/dL LAB CHEMISTRY METHOD 07/29/2024 6:00 PM EST [facility] Triglycerides 124 0 - 150 mg/dL LAB CHEMISTRY METHOD 07/29/2024 6:00 PM EST [facility] HDL 47 >=40 mg/dL LAB CHEMISTRY METHOD 07/29/2024 6:00 PM EST [facility] LDL Calculated 104(H) 0 - 100 mg/dL LAB CHEMISTRY METHOD 07/29/2024 6:00 PM EST [facility] VLDL Cholesterol Hever 24.8 mg/dL LAB CHEMISTRY METHOD 07/29/2024 6:00 PM EST [facility] Non HDL Chol. (LDL+VLDL) 129 <145 mg/dL LAB CHEMISTRY METHOD 07/29/2024 6:00 PM EST [facility] Chol/HDL Ratio 3.7 0.0 - 4.4 LAB CHEMISTRY METHOD 07/29/2024 6:00 PM EST [facility] Blood Venous blood specimen / Unknown Venipuncture / Unknown 07/29/2024 3:45 PM EST 07/29/2024 3:45 PM EST Tata Castro MD LAB BLOOD ORDERABLES F inal Result [facility] [address] [place] [address], * Diabetes Eye Exam (09/01/2023) Pathologist [facility] Diabetes: Annual Retina Eye Exam Abstracted Historical Provider HEALTH MAINTENANCE Final Result * Hepatitis C Screening (03/13/2023) Pathologist formerly [facility] Hepatitis C Screening Abstracted Historical Provider HEALTH MAINTENANCE Final Result from Last 3 Months or Most Recently Relevant to Health Maintenance Insurance [employer] Care Teams Supervisor Scrap Preparation Relationship Specialty Start Date End Date Tata Castro MD [address] [place] [id number] PCP - General 12/23/22
== END 2025-05-08 11:25 | disposition home or self-care (01) ==
LOC: HO.HSM 10:52
PROVIDERS: PCP Family Medicine; Visit Provider Psychiatry & Neurology Neurology
DX: M54.50 Low back pain, unspecified (principal); G89.29 Other chronic pain
CPT/HCPCS: 99204

== ENCOUNTER 2025-05-24 09:45 | Outpatient (REF) | payer MEDICARE, SELFPAY ==
--- NOTE | 2025-05-24 10:51 | EMG_ITS ---
Chief complaint: Low back pain Reason for referral: Low back pain Referred by:?Azul Gomes Procedure done: Right lower extremity NCS/EMG Right peroneal and tibial motor studies were performed with F waves and tibial H-reflex. Right superficial peroneal and sural sensory studies were performed an EMG needle examination was performed. Tibial and peroneal motor amplitudes were significantly diminished, peroneal more so than tibial, with mildly prolonged distal latencies and conduction velocities and 30s. Sensory amplitudes were similarly decrease with mildly slow conduction velocities. F responses were normal while H-reflex was absent. Paraspinal needle examination did not reveal any significant abnormality. 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
== END 2025-05-24 09:46 | disposition home or self-care (01) ==
LOC: HO.NEURO 09:45
PROVIDERS: PCP Physician Assistant; Visit Provider Psychiatry & Neurology Neurology
DX: M79.604 Pain in right leg (principal); M54.50 Low back pain, unspecified; G89.29 Other chronic pain
CPT/HCPCS: 95886; 95909

== ENCOUNTER → 2025-05-24 10:51 | Outpatient (BNV) | payer MEDICARE, SELFPAY | PROVIDERS: PCP Physician Assistant; Visit Provider Psychiatry & Neurology Neurology | DX: G62.89 Other specified polyneuropathies (principal) | CPT/HCPCS: 95886; 95909 ==

== ENCOUNTER 2025-06-01 14:18 | Outpatient (AMB) | payer OTHER, SELFPAY ==
--- NOTE | 2025-06-01 15:11 | A.OFFVIS_ITS ---
Intake Visit Reasons: Results Allergies No Known Allergies Allergy (Verified 05/03/25 08:33) HPI Comments Details: The patient is a 69-year-old male presenting with persistent pain and numbness in the right hip and leg following a fall a year ago. Following the incident, he experienced acute trauma resulting in musculoskeletal pain, swelling of the knee, and numbness on the outer part of the leg. Despite cortisone injections administered to reduce the pain and inflammation, he continues to have residual symptoms in the knee and hip. x-rays have shown degenerative changes in the knee and hip, suggestive of chronic arthritis. The patient has a history of knee swelling relieved by cortisone, and prior MRI imaging did not reveal significant nerve issues, although nerve involvement was suspected. These symptoms primarily manifest if he is in an incorrect position, risking further swelling and discomfort. The patient?s recent falls, although not recurrent, are a concern due to leg instability. He denies any radiating pain down the leg, emphasizing a localized painful area at the top of the hip. [facility] Family History (Updated 05/03/25 @ 08:33 by Ben Mendoza CMA) Father Nicotine dependence Heart failure Diabetes mellitus Mother Hypertension Son Asthma Diabetes mellitus Social History (Updated 05/03/25 @ 08:30 by Ben Mendoza CMA) Alcohol intake: never Patient Tobacco Use Status: Never used Tobacco Review of Systems Const Details: - Musculoskeletal: Reports right-sided lower back pain, knee swelling, hip discomfort, and occasional leg instability. - Neurological: Reports numbness on the outer side of the right leg. Denies radiating pain. - General: Denies recent falls, though had occurrences near the onset of symptoms. Physical Exam Neuro Other: Mental Status: Alert and oriented to person, place, and time. Normal attention. Normal spontaneous speech, fluency, and comprehension. No obvious issues with mood and memory. Affect is appropriate. Cranial Nerves: CN II: Visual deleon full to confrontation, visual acuity intact. CN III, IV, : Pupils equal, round, reactive to light and accommodation. Extraocular movements are normal. CN V: Facial sensation is normal. CN VII: Facial movements symmetrical. CN VIII: Hearing intact to bedside conversation is normal. CN IX, X: Palate elevates symmetrically. CN XI: Shoulder shrug and head turn symmetrical. CN XII: Tongue midline without atrophy or fasciculations. Deep tendon reflexes are absent. Slow and cautious gait with a cane. Extrapyramidal: Full facial expressions and blinking. No rigidity. Movements are appropriate with no tremor or abnormality. Speech: Normal; no dysarthria or tremor. Assessment & Plan Assessment & Plan (1) Low back pain: Comment: LS spine WO at [facility] in Oct 2024: DJD XR R knee and hip at [facility] in 2023: No sig pathology reported Code(s): M54.50 - Low back pain, unspecified Category: Medical Qualifiers: Chronicity: chronic Back pain laterality: right Sciatica presence: without sciatica Qualified Code(s): M54.50 - Low back pain, unspecified; G89.29 - Other chronic pain (2) Peripheral neuropathy: Code(s): G62.9 - Polyneuropathy, unspecified Category: Medical Qualifiers: Peripheral neuropathy type: polyneuropathy, other Qualified Code(s): G62.89 - Other specified polyneuropathies Plan Impression: [id number] 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 It can also result in significant pain but he denied neuropathic type of symptoms. Recommendations: He was advised to stay active uncontrolled diabetes. Leg exercises can help. Use of cane would help to avoid any accidents or falls. Coding Level of Care Code Est Pt Level 4 (18262) Diagnoses Chronic right-sided low back pain without sciatica M54.50; G89.29 Chronicity: chronic Back pain laterality: right Sciatica presence: without sciatica Other polyneuropathy G62.89 Peripheral neuropathy type: polyneuropathy, other
--- OUTSIDE RECORDS SUMMARY | 2025-06-01 18:02 | XMS_ITS | Encounter Summary ---
Author Organization [facility] Address [address] [place], [place] [id number] Phone Care Team Providers Care Meter Repair Shop Supervisor Name Role Phone Gabriel Horton MD Primary Care Provider [phone] Gabriel Horton MD Unavailable [phone] Radha Massey MD Primary Care Provider [phone] Gabriel Horton MD Primary Care Provider [phone] Gabriel Horton MD Unavailable [phone] Encounter Details Date Type Department Care Team (Late st Contact Info) Description 12/30/2020 Procedure Pass [facility] Physicians - Endoscopy - [address] [id number] Social History Tobacco Use Types Packs/Day Years [...] Start Date 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 Not on file [...] documented as of this encounter Care Teams Meter Repair Shop Supervisor Relationship Specialty Start Date End Date Gabriel Horton MD 1 [address] [place] [id number] [email or web address] PCP - General Internal Medicine 08/25/19 03/17/21 Radha Massey MD [address] [place] [address] [place] [id number] PCP - General Internal Medicine 03/18/21 03/25/21 Gabriel Horton MD [address] [place] [address] [email or web address] PCP - General Internal Medicine 03/26/21 Gabriel Horton MD [address] [place] [address] [email or web address] Internal Medicine 08/25/19 Gabriel Horton MD [address] [place] [address] [email or web address] Insurance Assigned Provider 11/23/21 05/24/22 documented as of this encounter Additional Source Comments The information contained in this document represents components of the legal health record. It is not the complete legal health record.[facility]
--- OUTSIDE RECORDS SUMMARY | 2025-06-01 18:03 | XMS_ITS | Clinical Summary ---
Author Organization [facility] Address [address] [place], [place] [id number] Phone Care Team Providers Care Staff Psychiatrist Name Role Phone Gabriel Horton MD Unavailable [phone] Gabriel Horton MD Primary Care Provider [phone] Allergies No known active allergies Medications FREESTYLE [...] Paxlovid. Drug drug interaction check performed using [facility] management of Paxlovid drug drug interactions [...] conservative management at home including rest, hydration, [id number]-[id number] cold flu medications as needed. Patient follow-up [...] will adjust glipizide accordingly. Declined referral to paraeducator. Patient follow-up in 3 months Assessment & [...] 0.75 weekly injections. Patient has follow-up with paraeducator in January. Monitor blood sugars before breakfast before dinner daily. Bring readings with him to his appointment. Discussed diabetic diet exercise weight loss. Patient has follow-up with me in March Assessment & Plan (12/25/2020 5:26 PM EDT): Patient 2 years ago A1c 3.0 diagnosed with diabetes. Started on Metformin follow paraeducator once and never followed up in 2 [...] Recommend he have a follow-up appointment with paraeducator. 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 Other 07/03/2022 4:13 PM EST Johnathan BECKHAMP POINT OF CARE JODIE T ORDERABLES Final Result [facility] [address] [place] [address], [facility] * (ABNORMAL) Microalbumin/creatinine ratio, random urine (03/27/2022 3:13 PM EDT) [facility] Urine Microalbumin 41.2(H) 0 - 30 mg/L [facility] URINE CREATININE 69 30 - 125 mg/dL [facility] MICROALB/CRE RATIO 59.7(H) <30.0 mg/g Cre [facility] Urine (Urine) 03/27/2022 3:1 3 PM EDT 03/27/2022 3:46 PM EDT Johnathan BECKHAMP URINE ORDERABLES Final Result Performing Organization Address [facility] Co de Phone Number [address] * Lipid panel (03/27/2022 3:13 PM EDT) [facility] HDL 42 >39 mg/dL [facility] CHOLESTEROL 159 0 - 199 mg/dL [facility] TRIGLYCERIDES 91 0 - 150 mg/dL [facility] LDL 99 50 - 129 mg/dL [facility] NON-HDL CHOLESTEROL 117 mg/dL [facility] Comment:Reference Range: The non-HDL Cholesterol value should not exceed the desired LDL-C by more than 30 mg/dl. Blood 03/27/2022 3:13 PM EDT 03/27/2022 3:33 PM EDT Johnathan BECKHAMP LAB BLOOD ORDERAB LES Final Result Performing Organization Address City/[facility]/ZIP Co de Phone Number [phone] [place] [address] * COLONOSCOPY FOR RESULT ENTRY ONLY (01/25/2021) [facility] Colonoscopy Normal Comment:PRACHI-Juany Historical Provider HEALTH MAINTENANCE Final Result * Hepatitis C antibody, qualitative (12/25/2020 1:50 PM EDT) HCV ANTIBODY Non-Reacti ve Non-Reacti ve [facility] Blood 12/25/2020 1:50 PM EDT 12/25/2020 2:05 PM EDT Johnathan Hart SUSTAINABLE DEVELOPMENT POLICY ANALYST LAB BLOOD ORDERAB LES Final Result [facility] [address] [place] [address], [facility] from Last 3 Months or Most Recently Relevant to Health Maintenance Insurance MEDICARE PART A & B [facility] MEDICARE REPLACEMENT MEDICARE PART A & B MEDICARE REPLACEMENT MEDICARE PART A & B MEDICARE REPLACEMENT MEDICARE PART A & B MEDICARE REPLACEMENT MEDICARE PART A & B MEDICARE REPLACEMENT MEDICARE PART A & B [facility] MEDICARE REPLACEMENT MEDICARE PART A & B [facility] MEDICARE REPLACEMENT MEDICARE PART A & B [facility] MEDICARE REPLACEMENT MEDICARE PART A & B [facility] MEDICARE REPLACEMENT Care Teams Staff Psychiatrist Relationship Specialty Start Date End Date Gabriel Horton MD [address] [place] [address] [email or web address] PCP - General Internal Medicine 03/26/21 Gabriel Horton MD [address] [place] [address] [email or web address] Internal Medicine 08/25/19 Additional Source Comments The information contained in this document represents components of the legal health record. It is not the complete legal health record.[facility]
--- OUTSIDE RECORDS SUMMARY | 2025-06-01 18:03 | XMS_ITS | Clinical Summary ---
Author Organization [facility] 230 [facility] Address [address] [place] [address] Phone Care Team Providers Care Financing Analyst Name Role Phone Tata Castro MD Primary Care Provider Allergies No known active allergies Medications IBUPROFEN ORAL Take by mouth. Active famotidine (PEPCID) 20 mg tablet Take 1 tablet (20 mg total) by mouth 2 (two) times a day if needed for heartburn. 4 Active cholecalciferol (VITAMIN D-3) 50 mcg (2,000 unit) capsule Take by mouth. A ctive blood sugar diagnostic (FreeStyle Lite Strips) test strip 1 each by Other route once daily as needed. 9 Active blood-glucose meter kit Use to check blood glucose up to 7 times a week 9 Active diclofenac (VOLTAREN) 75 mg EC tabletIndicatio ns:Acute pain of right shoulder,Strain of abdominal muscle, initial encounter Take 1 tablet (75 mg total) by mouth 2 (two) times a day. Do not crush, chew, or split. 60 tablet 5 Active albuterol HFA (ProAir HFA) 90 mcg/actuation inhaler Inhale 2 puffs by mouth every 4 (four) hours if needed for wheezing or shortness of breath. 8.5 g 5 03/29/20 26 Active glipiZIDE (Glucotrol XL) 10 mg 24 hr tabletIndicatio ns:Type 2 diabetes mellitus with diabetic microalbuminuri a, without long-term current use of insulin ([facility] V24, [facility] V28) Take 1 tablet (10 mg total) by mouth 2 (two) times a day. Do not crush, chew, or split. 180 each 5 Active losartan (COZAAR) 25 mg tablet TAKE 1 TABLET BY MOUTH DAILY 90 tablet 1 5 Active fluticasone propionate (FLONASE) 50 mcg/actuation nasal spray Administer 2 sprays into each nostril 1 (one) time each day. 16 g 5 Active amoxicillin-cla vulanate (AUGMENTIN) 875-125 mg per tablet Take 1 tablet by mouth 2 (two) times a day for 10 days. 20 each 5 05/02/20 25 Active Problems Problem Noted Date Diagnosed Date Class 2 severe obesity with serious comorbidity and body mass index (BMI) of 39.0 to 39.9 in adult 03/29/2025 Deviated septum 03/29/2025 Primary hypertension 07/29/2024 Type 2 diabetes mellitus wit h diabetic microalbuminuria, without long-term current use of insulin ([facility] V24, [facility] V28) 07/29/2024 Resolved Problems Problem Noted Date Diagnosed Date Resolved Date Elevated blood-pressure read ing without diagnosis of hypertension 03/13/2023 03/29/2025 Type 2 diabetes mellitus wit hout complication, without long-term current use of insulin ([facility] V24, [facility] V28) 03/13/2023 Encounters Date Type Department Care Team Description 04/22/2025 3:45 PM EDT Office Visit Walk-In Clinic - [address] [phone] Rafa West PA Acute bacterial rhinosinusitis (Primary Dx) 03/29/2025 1:30 PM EDT Office Visit Adult Medicine - [address] [phone] Parth Cruz PA Type 2 diabetes mellitus with diabetic microalbuminuria, without long-term current use of insulin ([facility] V24, [facility] V28) (Primary Dx); Class 2 severe obesity with serious comorbidity and body mass index (BMI) of 39.0 to 39.9 in adult, unspecified obesity type ([facility] V24, [facility] V28); Benign hypertension; Deviated septum; Screening for malignant neoplasm of prostate; Need for pneumococcal 20-valent conjugate vaccination from Last 3 Months Immunizations Immunization Administration Dates Next Due Influenza trivalent, 0.5mL [...] Type 2 diabetes mellitus wit hout complications (CMS/[facility] V24, [facility] V28) DX:Type 2 [place] betes mellitus without [...] ed Within the last 3 months, ho phuong many times did you visit the emergency [...] care for your loved ones. For example, child therapist or elderly care for an older adult? [...] Date Recorded What is your living situation? Unrecognized valu e 12/02/2024 Sex and Gender Information Value Date [...] 12:00 PM EST Office Visit Adult Medicine [facility] [address] [place] [phone] Parth Cruz PA [address] [place], [place] 07/04/2025 2:00 PM EST Office Visit Adult [address] [phone] Tata Castro MD [address] [place], [place] Health Maintenance Due Date Last Done Comments Colorectal Cancer Screening: Colonoscopy 1954 Diabetes: Annual Foot Exam 1964 RSV Immunization Adult Patients (1 - Risk 50-74 years 1-dose series) 2004 Zoster Vaccines (1 of 2) 2004 Medicare Annual Wellness Visit 09/11/2023 Diabetes: Annual [...] microalbuminuria, without long-term current use of insulin ([facility] V24, CMS/[facility] V28) Benign hypertension Class 2 severe obesity with serious comorbidity and body mass index (BMI) of 39.0 to 39.9 in adult, unspecified obesity type (CMS/HCC V24, CMS/[facility] V28) COMPREHENSIVE METABOLIC PANEL Routine 03/29/2025 1:53 PM EDT Type 2 diabetes mellitus with diabetic microalbuminuria, without long-term current use of insulin ([facility] V24, CMS/[facility] V28) Benign hypertension Class 2 severe obesity with serious comorbidity and body mass index (BMI) of 39.0 to 39.9 in adult, unspecified obesity type (CMS/HCC V24, CMS/HCC V28) POC GLUCOSE Routine 03/29/2025 1:32 PM EDT Type 2 diabetes mellitus with diabetic microalbuminuria, without long-term current use of insulin (CMS/[facility] V24, CMS/[facility] V28) MICROALBUMIN CREATININE URINE RATIO Routine 07/29/2024 3:48 PM EST Type 2 diabetes mellitus with diabetic microalbuminuria, without long-term current use of insulin (CMS/[facility] V24, CMS/[facility] V28) Primary hypertension Falls frequently Neural foraminal stenosis of lumbar spine LIPID PANEL WITH REFLEX TO DIRECT LDL Routine 07/29/2024 3:45 PM EST Type 2 diabetes mellitus with diabetic microalbuminuria, without long-term current use of insulin ([facility] V24, [facility] V28) Primary hypertension Falls frequently Neural foraminal stenosis of lumbar spine DIABETES EYE EXAM Routine 09/01/2023 HEPATITIS C SCREENING Routine 03/13/2023 from Last 3 Months or Most Recently Relevant to Health Maintenance Results * Prostate specific antigen screen (03/29/2025 1:53 PM EDT) PSA 1.74 0.00 - 4.00 ng/mL LAB CHEMISTRY METHOD 03/29/2025 7:03 PM EDT [facility] Blood Venous blood specimen / Unknown Venipuncture / Unknown 03/29/2025 1:53 PM EDT 03/29/2025 1:53 PM EDT Narrative [facility] - 03/29/2025 7:03 PM EDT The Siemens Advia Centaur Chemiluminescent Immunoassay is used. Results obtained with different assay methods or kits cannot be used interchangeably. Results cannot be interpreted as absolute evidence of the presence or absence of malignant disease. us Parth ZUNIGA LAB BLOOD ORDERABLES Final Re sult [facility] [address] [place] [address], * (ABNORMAL) Hemoglobin A1c (03/29/2025 1:53 PM EDT) Hemoglobin A1C 11.0(H) <6.5 % LAB CHEMISTRY METHOD 03/29/2025 8:42 PM EDT [facility] Mean Bld Glu Estim. 269 mg/dL LAB CHEMISTRY METHOD 03/29/2025 8:[address] [facility] Blood Venous blood specimen / Unknown Venipuncture / Unknown 03/29/2025 1:53 PM EDT 03/29/2025 1:53 PM EDT us Parth ZUNIGA LAB BLOOD ORDERABLES Final Re sult [facility] [address] [place] [address], [place] [phone] * (ABNORMAL) Comprehensive metabolic panel (03/29/2025 1:53 PM EDT) Sodium 135 133 - 145 mmol/L LAB CHEMISTRY METHOD 03/29/2025 6:[address] [facility] Potassium 4.1 3.5 - 5.5 mmol/L LAB CHEMISTRY METHOD 03/29/2025 6:[address] [facility] Chloride 101 96 - 110 mmol/L LAB CHEMISTRY METHOD 03/29/2025 6:[address] [facility] CO2 29 21 - 32 mmol/L LAB CHEMISTRY METHOD 03/29/2025 6:[address] [facility] Anion Gap 5 3 - 11 LAB CHEMISTRY METHOD 03/29/2025 6:[address] [facility] Glucose 271(H) 70 - 100 mg/dL LAB CHEMISTRY METHOD 03/29/2025 6:[address] [facility] BUN 14 5 - 25 mg/dL LAB CHEMISTRY METHOD 03/29/2025 6:[address] [facility] Creatinine 0.70 0.70 - 1.30 mg/dL LAB CHEMISTRY METHOD 03/29/2025 6:[address] [facility] eGFR 99 >=60 mL/min/1. 73m2 LAB CHEMISTRY METHOD 03/29/2025 6:[address] [facility] Comment:Calculation based on the Chronic Kidney Disease Epidemiology Collaboration (CKD-EPI) equation refit without adjustment for race. BUN/Creatinine Ratio 20.0 LAB CHEMISTRY METHOD 03/29/2025 6:32 PM EDT [facility] Calcium 9.0 8.5 - 10.5 mg/dL LAB CHEMISTRY METHOD 03/29/2025 6:32 PM EDT [facility] AST (SGOT) 35 10 - 42 unit/L LAB CHEMISTRY METHOD 03/29/2025 6:32 PM EDT [facility] ALT (SGPT) 58 10 - 60 unit/L LAB CHEMISTRY METHOD 03/29/2025 6:32 PM EDT [facility] Alkaline Phosphatase 104 42 - 121 unit/L LAB CHEMISTRY METHOD 03/29/2025 6:32 PM EDT [facility] Total Protein 7.5 6.0 - 8.0 g/dL LAB CHEMISTRY METHOD 03/29/2025 6:32 PM EDT [facility] Albumin 3.7 3.2 - 5.0 g/dL LAB CHEMISTRY METHOD 03/29/2025 6:32 PM EDT [facility] Total Bilirubin 0.4 0.0 - 1.4 mg/dL LAB CHEMISTRY METHOD 03/29/2025 6:32 PM EDT [facility] Blood Venous blood specimen / Unknown Venipuncture / Unknown 03/29/2025 1:53 PM EDT 03/29/2025 1:53 PM EDT us Parth ZUNIGA LAB BLOOD ORDERABLES Final Re sult [facility] [address] [place] [address], * (ABNORMAL) POC glucose manually resulted (03/29/2025 1:32 PM EDT) Glucose POC 297 mg/dL Blood Capillary blood specimen / Unknown 03/29/2025 1:32 PM EDT Parth ZUNIGA POINT OF CARE TEST ENTER/EDIT ORDERABLES Final Result * (ABNORMAL) Microalbumin creatinine urine ratio (07/29/2024 3:48 PM EST) Pathologist [facility] Creatinine, Urine 107.0 mg/dL LAB CHEMISTRY METHOD 07/29/2024 6:16 PM EST [facility] Microalb, Ur 42.8(H) 0.0 - 29.0 mg/L LAB CHEMISTRY METHOD 07/29/2024 6:16 PM EST [facility] Microalb/Crea t Ratio 40(H) <30 mg/g creat LAB CHEMISTRY METHOD 07/29/2024 6:16 PM EST [facility] Urine Urine specimen obtained by clean catch procedure / Unknown Non-blood Collection / Unknown 07/29/2024 3:48 PM EST 07/29/2024 3:48 PM EST us Tata Castro MD LAB URINE ORDERABLES F inal Result [facility] [address] [place] [address], [place] [phone] * (ABNORMAL) Lipid panel with reflex to direct LDL (07/29/2024 3:45 PM EST) Cholesterol 176 0 - 200 mg/dL LAB CHEMISTRY METHOD 07/29/2024 6:00 PM EST [facility] Triglycerides 124 0 - 150 mg/dL LAB CHEMISTRY METHOD 07/29/2024 6:00 PM EST [facility] HDL 47 >=40 mg/dL LAB CHEMISTRY METHOD 07/29/2024 6:00 PM EST [facility] LDL Calculated 104(H) 0 - 100 mg/dL LAB CHEMISTRY METHOD 07/29/2024 6:00 PM EST [facility] VLDL Cholesterol Hever 24.8 mg/dL LAB CHEMISTRY METHOD 07/29/2024 6:00 PM EST [facility] Non HDL Chol. (LDL+VLDL) 129 <145 mg/dL LAB CHEMISTRY METHOD 07/29/2024 6:00 PM EST [facility] Chol/HDL Ratio 3.7 0.0 - 4.4 LAB CHEMISTRY METHOD 07/29/2024 6:00 PM EST [facility] Blood Venous blood specimen / Unknown Venipuncture / Unknown 07/29/2024 3:45 PM EST 07/29/2024 3:45 PM EST Tata Castro MD LAB BLOOD ORDERABLES F inal Result [facility] [address] [place] [address], * Diabetes Eye Exam (09/01/2023) [facility] Diabetes: Annual Retina Eye Exam Abstracted Historical Provider HEALTH MAINTENANCE Final Result * Hepatitis C Screening (03/13/2023) [facility] Hepatitis C Screening Abstracted Historical Provider HEALTH MAINTENANCE Final Result from Last 3 Months or Most Recently Relevant to Health Maintenance Insurance [employer] MEDICARE Care Teams Financing Analyst Relationship Specialty Start Date End Date Tata Castro MD [address] [place] [phone] PCP - General 12/23/22
== END 2025-06-01 16:03 | disposition home or self-care (01) ==
LOC: HO.HSM 14:19
PROVIDERS: PCP Family Medicine; Visit Provider Psychiatry & Neurology Neurology
DX: M54.50 Low back pain, unspecified (principal); G89.29 Other chronic pain; G62.89 Other specified polyneuropathies
CPT/HCPCS: 99214

== ENCOUNTER 2025-08-07 13:38 | Outpatient (AMB) | payer MEDICARE, SELFPAY ==
--- NOTE | 2025-08-07 14:03 | A.PHYSOV_ITS ---
Vital Signs 08/07/25 14:05 Height 5 ft 5 in Weight 235 lb BMI 39.1 Intake Visit Reasons: right hip & right knee injections Intake Note: Patient is a 69 year old male here for a right hip and right knee injection. 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 Required: No Allergies No Known Allergies Allergy (Verified 08/07/25 14:07) PFSH Surgical History (Updated 08/07/25 @ 14:08 by Kandice Stone MA) Hx of appendectomy History of ankle surgery H/O hernia repair Family History (Updated 05/03/25 @ 08:33 by Ben Mendoza CMA) Father Nicotine dependence Heart failure Diabetes mellitus Mother Hypertension Son Asthma Diabetes mellitus Social History Alcohol intake: never Patient Tobacco Use Status: Never used Tobacco Physical Exam Vital Signs: BMI result Body Mass Index 39.1 Office Procedures AMB Hip Injection AMB Hip Injection Procedure Details: Right Greater trochanteric bursal injection: The risks, benefits and complications of the Right greater trochanteric bursitis/gluteal tendinopathy were discussed with the patient, including but not limited to infection, increased serum glucose, nerve damage, bleeding and pain. All questions were answered to the patient's satisfaction. Verbal consent was obtained. The patient was eager to proceed. Patient was cleansed with Betadine, ethyl chloride was then used to desensitize the skin. Using an a 25-gauge needle 40 mg of Kenalog and 3 mL 2% lidocaine were injected over the greater trochanter of maximal tenderness. The patient tolerated the procedure well without immediate complication. Postinjection instructions were given. Hip (Bursa) Injection - : Right All charges added?: Procedure code (CPT) selection complete AMB Knee Injection AMB Knee Injection Procedure Details: Right Knee injection: The risks, benefits and complications of the [ ] knee injection were discussed with the patient including but not limited to increased serum glucose, infection, nerve pain, fat atrophy, pigment augmentation, bleeding and pain. All questions were answered to the patient's satisfaction. Verbal consent was obtained. The patient was eager to proceed. Using aseptic technique with Betadine, ethyl chloride was then used to desensitize the skin. Using a 22-gauge needle 40 mg of Kenalog and 3 mL 2% lidocaine were injected into the knee joint. A Band-Aid was applied. Patient tolerated the procedure well without immediate complication. Postinjection instructions were given. Knee Injection - : Right All charges added?: Procedure code (CPT) selection complete Office Meds Kenalog 40 mg/mL suspension for injection Performing Provider: EFRAIN Daley Performing Location: [facility] Administered by: EFRAIN Daley on 08/07/25 15:04 Dose Route Admin Location Dispensed Lot Number Expiration Date [facility] [employer] 40 mg intrabursal 1 mL [id number] [employer] Total Dispensed Waste 1 mL 0 % lidocaine (PF) 20 mg/mL (2 %) injection solution Performing Provider: EFRAIN Daley Performing Location: [facility] Administered by: EFRAIN Daley on 08/07/25 15:04 Dose Route Admin Location Dispensed Lot Number Expiration Date [facility] [employer] 60 mg intrabursal 5 mL [id number] [employer] Total Dispensed Waste 5 mL 40 % Kenalog 40 mg/mL suspension for injection Performing Provider: EFRAIN Daley Performing Location: [facility] Administered by: EFRAIN Daley on 08/07/25 15:04 Dose Route Admin Location Dispensed Lot Number Expiration Date [facility] [employer] 40 mg intra-articular 1 mL [id number] [employer] Total Dispensed Waste 1 mL 0 % lidocaine (PF) 20 mg/mL (2 %) injection solution Performing Provider: EFRAIN Daley Performing Location: [facility] Administered by: EFRAIN Daley on 08/07/25 15:04 Dose Route Admin Location Dispensed Lot Number Expiration Date [facility] [employer] 60 mg intra-articular 5 mL [id number] [employer] [place] [employer] Total Dispensed Waste 5 mL 40 % Assessment & Plan Assessment & Plan (1) Trochanteric bursitis, right hip: Code(s): M70.61 - Trochanteric bursitis, right hip Category: Medical (2) Osteoarthritis of right knee: Code(s): M17.11 - Unilateral primary osteoarthritis, right knee Category: Medical Qualifiers: Osteoarthritis type: primary Qualified Code(s): M17.11 - Unilateral primary osteoarthritis, right knee Plan Mr. Quinn is a 69-year-old male seen in evaluation today for right knee arthritis as well as right hip bursitis. Today consented to right greater troch anteric bursal injection as well as right knee intra-articular injection. He was given post-injection instructions, recommend cold or moist heat compresses for 15 minutes up to 5 times daily. Continue low-impact activities such as walking, biking and swimming. Follow-up with our office as needed. Thank you for allowing me to participate in the care of your patient. Orders: Orders AMB Hip/Bursa Injection Today M70.61 - Trochanteric bursitis, right hip AMB Knee Injection Today M17.11 - Unilateral primary osteoarthritis, right knee Coding Level of Care Code Procedure Only Diagnoses Trochanteric bursitis, right hip M70.61 Primary osteoarthritis of right knee M17.11 Osteoarthritis type: primary CPT Codes AMB Hip Injection - Hip/Bursa Injection - : Right ([id number]) AMB Knee Injection - Hip/Bursa Injection - : Right ([id number])
[2025-08-07 14:05] VITALS: BMI 39.1
--- OUTSIDE RECORDS SUMMARY | 2025-08-07 17:03 | XMS_ITS | Encounter Summary ---
Author Organization [facility] Address [address] [place] [address] [place], [place] [id number] Phone Care Team Providers Care Roustabout Head Name Role Phone Gabriel Horton MD Primary Care Provider [phone] Gabriel Horton MD Unavailable [phone] Radha Massey MD Primary Care Provider [phone] Gabriel Horton MD Primary Care Provider [phone] Gabriel Horton MD Unavailable [phone] Encounter Details Date Type Department Care Team (Late st Contact Info) Description [facility] [address] [place] [address] Social History Tobacco Use Types Packs/Day Years [...] 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 Not on file Not on file Not [...] documented as of this encounter Care Teams Roustabout Head Relationship Specialty Start Date End Date Gabriel Horton MD [address] [place] [id number] [email or web address] PCP - General Internal Medicine 08/25/19 03/17/21 Radha Massey MD [address] [place] [address] [place] [id number] PCP - General Internal Medicine 03/18/21 03/25/21 Gabriel Horton MD [address] [place] [address] [email or web address] PCP - General Internal Medicine 03/26/21 Gabriel Horton MD [address] [place] [address] [email or web address] Internal Medicine 08/25/19 Gabriel Horton MD [address] [place] [address] [email or web address] Insurance Assigned Provider 11/23/21 05/24/22 documented as of this encounter Additional Source Comments The information contained in this document represents components of the legal health record. It is not the complete legal health record.[facility]
--- OUTSIDE RECORDS SUMMARY | 2025-08-07 17:03 | XMS_ITS | Data Portability ---
Author Organization [place] - [facility], Allergy Address [address] [address] Care Team Providers Care Estimator And Drafter Supervisor Name Role Phone WILLIAM BURROWS Referring Provider [phone] Assessment Encounter Date Assessment Date Assessment LastModified by Organization Details LastModified Time 06/12/2025 06/12/2025 - Deviated nasal septum, left side. - Suspected sleep apnea. The patient has a significant deviation of the nasal septum, which is causing nasal obstruction and difficulty breathing through the left nostril. Conservative measures, including fluticasone nasal spray, have been ineffective due to the severity of the deviation. Surgical intervention is recommended to correct the septal deviation and improve nasal airflow. The procedure will involve general anesthesia, removal of the curved cartilage, and placement of soft plastic splints for one week postoperatively. Risks of the surgery, including bleeding, infection, changes to nasal shape, and septal perforation, were discussed in detail. Recovery time is expected to be approximately five to seven days, with full results taking up to a couple of months. The patient also exhibits signs of possible sleep apnea, including snoring and waking himself up during sleep. A sleep study is ordered to confirm the diagnosis and assess the severity of the condition. The importance of addressing sleep apnea to reduce risks of cardiovascular complications, such as heart attacks and strokes, was emphasized. The patient was counseled on the potential need for CPAP therapy, particularly after surgical correction of the nasal septum. The patient will be scheduled for surgery in August or September, depending on availability. He will also receive contact information for the maori physiotherapist and instructions to arrange the sleep study at his earliest convenience. [email or web address] Not available 06/12/2025 10:11:52 Plan of Treatment Reminders Order Date Submit Date Provider Last Modified By Organization Details Last Modified Time Details Appointments SURGERY 90 2025 08:45A M Norris Almendarez, DO Not available Not available Not available Post Op 2025 02:15P M EFRAIN HICKEY Not available Not available Not available Post Op 2025 02:15P M Norris Almendarez, DO Not available Not available Not available Lab None recorded. Referral None recorded. Procedures None recorded. Surgeries septoplas ty (SURG) 2024 025 [email or web address] Not available 06/12/2025 10:19:26 submucous resection inferior turbinate (SURG) 2024 [email or web address] Not available 06/12/2025 10:19:26 Imaging polysomno gram - likely JUAN R, witnessed apneas 2024 Sleep Medicine Services [facility], [address] [facility], [facility] [address], [place], [address], 07/11/2025 12:32:31 Medication Orders None recorded. Patient TargetsNo targets recorded. Patient Instructions Encounter Date Encounter Id Patient Instructions Last Modified By Organization Details Last Modified Time 06/12/2025 [id number] nasal septum repair: before your surgery [email or web address] Not available 06/12/2025 10:12:42 - Schedule a sleep study at your earliest convenience. - Contact the maori physiotherapist to arrange the procedure. - Follow up in one week post-surgery for splint removal and suctioning. - Resume nasal sprays, including saltwater and fluticasone, one week after surgery to aid in healing. [email or web address] Not available 06/12/2025 10:10:17 Please note: Parts of this encounter note have been generated by AI based on audio conversation. Patient consent was required prior to utilizing this technology. Content review was required prior to finalizing the note. [email or web address] Not available 06/12/2025 10:10:17 Reason for Referral None Reported. Problems Name Problem SNOMED Code Status Onset Date Resolution Date Notes Provider Name and Address Organization Details Recorded Time Deviated nasal septum 826868688 Active 2024 Norris Almendarez [address], [phone], [facility] - [facility] [place] 08:51:09 Hypertrophy of nasal turbinates 75630018 Active 2024 Norris Almendarez, [place] [address], [place], [address], [facility] - [facility] [place] 08:51:10 Nasal congestion 92193678 Active 2024 Norris Almendarez, [place] [address], [place], [address], [facility] - [facility] [place] 08:51:12 Finding related to sleep 551893537 Active 2024 Norris Almendarez, [place] [address], [place], [address], [facility] - [facility] [place] 10:11:58 Nasal obstruction 149407466 Active 2024 Norris Almendarez, [place] [address], [place], [address], [facility] - [facility] [place] 10:12:39 Problem Notes None recorded. Medical Equipment None Reported. Medications Name Sig Start Date Stop Date Status Note LastModified by Organization Details LastModified Time cyclobenzap rine 10 mg tablet TAKE 1 TABLET BY MOUTH AT BEDTIME FOR UP TO 10 DAYS NEEDED FOR MUSCLE SPASMS 06/12 completed Not Available Not Available Not Available amoxicillin 500 mg capsule TAKE ONE CAPSULE BY MOUTH THREE TIMES DAILY active Not Available Not Available No t Available glipizide ER 10 mg tablet, extended release 24 hr active Not Available Not Available Not Available famotidine 20 mg tablet TAKE 1 TABLET BY MOUTH TWICE DAILY NEEDED FOR HEARTBURN active Not Available Not Available No t Available glipizide ER 2.5 mg tablet, extended release 24 hr TAKE 1 TABLET BY MOUTH DAILY WITH LARGEST MEAL OF THE DAY active Not Available Not Available No t Available losartan 25 mg tablet TAKE 1 TABLET BY MOUTH DAILY active Not Available Not Available No t Available diclofenac sodium 75 mg tablet,lio yed release 06/12 completed Not Available Not Available Not Available diclofenac sodium 50 mg tablet,lio yed release TAKE 1 TABLET BY MOUTH TWICE DAILY FOR 15 DAYS 06/12 completed Not Available Not Available Not Available gabapentin 100 mg capsule TAKE 1 CAPSULE BY MOUTH THREE TIMES DAILY active Not Available Not Available No t Available methylpredn isolone 4 mg tablets in a dose pack FOLLOW PACKAGE DIRECTION S 06/12 completed Not Available Not Available Not Available albuterol sulfate HFA 90 mcg/actuati on aerosol inhaler INHALE 2 PUFFS BY MOUTH EVERY 4 HOURS NEEDED WHEEZING OR SHORTNESS OF BREATH active Not Available Not Available No t Available fluticasone propionate 50 mcg/actuati on nasal spray,suspe nsion SHAKE LIQUID AND USE 2 SPRAYS IN EACH NOSTRIL 1 TIME EACH DAY active Not Available Not Available No t Available amoxicillin 875 mg-potbiaiu m clavulanate 125 mg tablet TAKE 1 TABLET BY MOUTH TWICE DAILY FOR 10 DAYS 06/09 completed Not Available Not Available Not Available cyclobenzap rine 5 mg tablet 06/12 completed Not Available Not Available Not Available Jardiance 25 mg tablet TAKE 1 TABLET BY MOUTH DAILY active Not Available Not Available No t Available Vitals Date Recorded Body height Body mass index (BMI) Body weight Provider Name and Address Organization Details Last Updated DateTime 06/12/2025 165.1 cm 38.3 kg/m2 760358.25 g GATO VELA [place] - [facility] 06/12/2025 09:55:26 Social History None recorded. Functional Status None recorded. Mental Status None recorded. Family History Nothing Reported. Medical History No medical history recorded. Past Encounters Encounter ID Performer Location Encounter Start Date Encounter Closed Date Diagnosis/Indication Diagnosis SNOMED-CT Code Diagnosis ICD10 Code Diagnosis IMO Codes Diagnosis Note [id number] Norris Almendarez, DO [facility] of [address] [address] 06/12/2025 09:43:27 06/12/2025 10:14:03 Deviated nasal septum 078887399 J34.2 15546 Hypertroph y of nasal turbinates 70524470 J34.3 2532 Nasal congestion 4978243 0 R09.81 11017 Finding re lated to sleep 533442341 G47.30 557413 Nasal obstruction 628739 000 J34.89 26428 Health Concerns Section Related Observation LastModified by Organization Detai ls LastModified Time None Recorded Concern Status LastModified by Organization Details LastModified Time None Recorded Advance Directives Directive None Recorded Payers Insurance Date Sequence Insurance Name Policy Number Policy Varner Covered Member ID Varner Member ID Guarantor Name 06/12/2025 1 [facility] (MEDICARE REPLACEMENT/A DVANTAGE - PPO) [id number] Boo Quinn [id number] Boo Quinn Notes Date Note Type Note Provider Name and Address Organization Details Recorded Time 06/12/2025 text/html Primary note from March 2025 was reviewed showing a history of hypertension, type 2 diabetes, and left nasal obstruction. No history of allergies. Mild asthma. Boo Quinn is a 69-year-old male who presents for evaluation of nasal obstruction on the left side. He reports an inability to breathe through his left nostril, which has progressively worsened over the past few years. He has used nasal sprays, including fluticasone, but has found them ineffective, likely due to difficulty in application caused by the obstruction. He experiences occasional sinus pressure and seasonal sinus infections, typically in the spring and fall, with one or two episodes per year. He denies foul-smelling nasal discharge. He also reports snoring and waking himself up during sleep, raising concerns about possible sleep apnea. He missed a prior sleep study appointment due to family obligations but remains concerned about his sleep quality. He denies any history of allergies or other sinus-related symptoms. Norris Almendarez, [address], [address], [facility] - [facility] 06/12/2025 10:13:07
--- OUTSIDE RECORDS SUMMARY | 2025-08-07 17:03 | XMS_ITS | Clinical Summary ---
Author Organization Sarika Bolanos [facility] Address [address] [place] [address] Care Team Providers Care Security Officers And Guards Name Role Phone Gabriel Horton MD Primary Care Provider [phone] Social History Tobacco Use Types Packs/Day Years Used Date Smoking Tobacco: Never Assessed Sex and Gender Information Value Date Recorded Sex Assigned at Not on file Legal Sex Male 4:41 PM EST Gender Identity Not on file Sexual Orientation Not on file Plan of Treatment Not on file Care Teams Security Officers And Guards Relationship Specialty Start Date End Date Gabriel Horton MD PCP - General 07/03/22
--- OUTSIDE RECORDS SUMMARY | 2025-08-07 17:03 | XMS_ITS | Encounter Summary ---
Author Organization [facility] Address [address] [place] [address] Care Team Providers Care Worksite Wellness Practitioner Name Role Phone Tata Castro MD Primary Care Provider Encounter Details Date Type Department Care Team ([facility] st Contact Info) Description 06/30/2025 Results Follow-Up Adult [facility] [address] [place] [phone] Oscar Olvera RN Social History Tobacco Use Types Packs/Day Years Used Date Smoking Tobacco: Never Smokeless Tobacco: Never Alcohol Use Standard Drinks/Week Comments Never 0 (1 standard drink = 0.6 oz pur e alcohol) Housing Instability Answer Date Recorde d Are you worried that in the next 2 months you may not have stable housing? No 07/03/2025 Food Access & Nutrition Answer Date Rec orded Do you have access to a vari ety of food including fruits and vegetables? Yes 07/03/2025 Access to Healthcare Answer Date Record ed Within the last 3 months, ho w many times did you visit the emergency department for your medical care? 0 07/03/2025 Health Literacy Answer Date Recorded How often do you need to hav e someone help you when you read instructions, pamphlets, or other written material from your doctor or pharmacy? Never 07/03/2025 Caregiver: How often do you need to have someone help you when you read instructions, pamphlets, or other written material from your doctor or pharmacy? Not on file 07/03/2025 Financial Risk Answer Date Recorded How hard is it for you to pa y for the very basics like food, housing, medical care, and air conditioning / heating? Not very hard 07/03/2025 Transportation Answer Date Recorded Has the lack of transportati on kept you from meetings, work, or from getting things needed for daily living? No Has the lack of transportati on kept you from medical appointments or from getting medications? No 07/03/2025 Social Isolation Answer Date Recorded How often do you feel lonely or isolated from th ose around you? Never 07/03/2025 Food Risk Answer Date Recorded Within the past 12 months we worried whether our food would run out before we got money to buy more. Never true 07/03/2025 Within the past 12 months th e food we bought just didn't last and we didn't have money to get more. Never true 07/03/2025 Dependent Care Answer Date Recorded Do you need help finding or paying for care for your loved ones. For example, children's nursery assistant or elderly care for an older adult? No 07/03/2025 Education Answer Date Recorded Do you think completing more education or training, like finishing a GED, going to college, or learning a trade, would be helpful for you? No 07/03/2025 Employment and Income Answer Date Recor ded During the last four weeks, have you been actively looking for work? No 07/03/2025 Living Situation Answer Date Recorded What is your living situation? Unrecognized valu e 07/03/2025 Sex and Gender Information Value Date Recorded Sex Assigned at Not on file Legal Sex Male 8:58 PM EST Gender Identity Not on file Sexual Orientation Not on file documented as of this encounter Plan of Treatment Upcoming Encounters Date Type Department Care Team (Latest Contact Info) Description 09/13/2025 8:45 AM EST Hospital Encounter [facility] [place] [address] [place] [phone] Norris Almendarez DO [address] [address] 09/13/2025 8:45 AM EST - 09/13/2025 10:15 AM EST Surgery [facility] [place] [address] [place] [phone] Norris Almendarez DO [address] [place] [address] [place] [address] SEPTOPLASTY & BILATERAL TURBINATE REDUCTION [87228 (CPT ) +1 more] 01/02/2026 2:00 PM EDT Office Visit Adult Medicine - [place] [address] [place] [address] Tata Castro MD [address] [place] [phone] Scheduled Procedures Name Priority Associated Diagnoses Date/Ti me SEPTOPLASTY Deviated nasal septum 09/13/2025 8:45 AM EST documented as of this encounter Visit Diagnoses Not on filedocumented in this encounter Additional Health Concerns Assessment Noted Time PHQ-9 Depression Total Score: 1 03/06/20 25 4:44 PM EDT documented as of this encounter Care Teams Worksite Wellness Practitioner Relationship Specialty Start Date End Date Tata Castro MD [address] [place] [id number] PCP - General 12/23/22 documented as of this encounter
--- OUTSIDE RECORDS SUMMARY | 2025-08-07 17:03 | XMS_ITS | Clinical Summary ---
Author Organization [facility] 230 [facility] lding Address [address] [place] [address] Phone Care Team Providers Care Dairy Tester Name Role Phone Tata Castro MD Primary Care Provider Allergies No known active allergies Medications famotidine (PEPCID) 20 mg tablet Take 1 tablet (20 mg total) by mouth 2 (two) times a day if needed for heartburn. 4 Active blood sugar diagnostic (FreeStyle Lite Strips) test [...] chew, or split. 60 tablet 5 Active losartan (COZAAR) 25 mg tablet TAKE 1 TABLET BY MOUTH DAILY 90 tablet 1 5 Active fluticasone propionate (FLONASE) 50 mcg/actuation nasal spray Administer 2 sprays into each nostril 1 (one) time each day. 16 g 5 Active glipiZIDE (Glucotrol XL) 10 mg 24 hr tabletIndicatio ns:Type 2 diabetes mellitus with diabetic microalbuminuri a, without long-term current use of insulin (CMS/HCC V24, CMS/HCC V28) Take 1 tablet (10 mg total) by mouth 2 (two) times a day. Do not crush, chew, or split. 180 each Active albuterol HFA (ProAir HFA) 90 mcg/actuation inhaler Inhale 2 puffs by mouth every 4 (four) hours if needed for wheezing or shortness of breath. 8.5 g 5 06/20/20 26 Active Active Problems Problem Noted Date Diagnosed Date Class 2 severe obesity with serious comorbidity and body mass index (BMI) of 39.0 to 39.9 in adult 03/29/2025 Deviated septum 03/29/2025 Primary hypertension 07/29/2024 Type 2 diabetes mellitus wit h diabetic microalbuminuria, without long-term current use of insulin 07/29/2024 Resolved Problems Problem Noted Date Diagnosed Date Resolved Date Elevated blood-pressure read ing without diagnosis of hypertension 03/13/2023 03/29/2025 Type 2 diabetes mellitus wit hout complication, without long-term current use of insulin 03/13/2023 03/29/2025 Encounters Date Type Department Care Team Description 06/30/2025 Results Follow-Up Adult Medicine [facility] [address] [place] [address] Oscar Olvera RN 06/29/2025 1:15 PM EST Lab Draw Station [address] [address] Routine general medical examination at a health care facility; Type 2 diabetes mellitus with diabetic microalbuminuria, without long-term current use of insulin ([facility] V24, [facility] V28); Primary hypertension; Class 2 severe obesity with serious comorbidity and body mass index (BMI) of 39.0 to 39.9 in adult, unspecified obesity type 06/20/2025 12:00 PM EST Office Visit Adult Medicine [facility] [address] [place] [address] Parth Cruz PA Routine general medical examination at a health care facility (Primary Dx); Type 2 diabetes mellitus with diabetic microalbuminuria, without long-term current use of insulin ([facility] V24, [facility] V28); Primary hypertension; Class 2 severe obesity with serious comorbidity and body mass index (BMI) of 39.0 to 39.9 in adult, unspecified obesity type from Last 3 Months Immunizations Immunization Administration Dates Next Due Influenza trivalent, 0.5mL ( Fluad) 65yo and older 06/20/2025,06/03/2024,09/24/2023 Influenza trivalent, 0.5mL ( Fluzone High-dose) 65yo and older 09/24/2023 Influenza trivalent, 0.5mL, preservative free (Fluarix; FluLaval; Fluzone) ages 6mo and older (Afluria) 3 years and older 06/30/2014,06/07/2013,05/14/2012,05/06,03/26/2010 Influenza trivalent, with pr eservative (Fluzone; Afluria) 6mo and older 06/28/2010 Influenza, Unspecified 03/26/2010 Pneumococcal conjugate 20 va lent (Prevnar 20, PCV 20) 2mo and older 03/29/2025 Pneumococcal polysaccharide 23 valent (Pneumovax 23) 2yo and older 12/24/2020,09/28/2012 Td Tetanus diptheria (Tdvax) 7yo and older 10/13/2008 Td, Unspecified 10/13/2008 Tdap Tetanus diptheria acell ular pertussis (Boostrix; Adacel) 7yo and older 03/13/2023 influenza Split Preservative Free ID 06/30/2014 Surgical History Surgery Date Site/Laterality Comments ANKLE SURGERY Right PROCEDURE: HISTORICAL ANKLE SURGERY UMBILICAL HERNIA REPAIR PROCEDURE: LAP UMBILICAL HERNIA REPAIR APPENDECTOMY PROCEDURE: HISTORICAL APPENDECTOMY Medical History Medical History Date Comments Type 2 diabetes mellitus wit hout complications ([facility] V24, [facility] V28) DX:Type 2 arg[place] betes mellitus without [...] for your loved ones. For example, child specialist or elderly care for an older adult? [...] on file Sexual Orientation Not on file Last Filed Vital Signs Vital Sign Reading Time Taken Comments Blood Pressure 124/80 07/04/2025 1:53 PM EST Pulse 94 07/04/2025 1:53 PM EST Temperature 36.1 C (96.9 F) 07/04/2025 1:53 PM EST Respiratory Rate 16 07/04/2025 1:53 PM EST Oxygen Saturation 96% 04/22/2025 3:46 PM EDT Inhaled Oxygen Concentration - - Weight 104 kg (230 lb) 07/04/2025 1:53 PM EST Height 163 cm (5' 4.17 ) 07/04/2025 1:53 PM EST Body Mass Index 39.27 07/04/2025 1:53 PM EST Plan of Treatment Upcoming Encounters Date Type Department Care Team (Latest Contact Info) Description 09/13/2025 8:45 AM EST Hospital Encounter [facility] [place] [address] [place] [phone] Norris Almendarez, DO [address] [address] 09/13/2025 8:45 AM EST - 09/13/2025 10:[address] [facility] [place] [address] [place] [phone] Norris Almendarez, DO [address] [employer] [address] [address] SEPTOPLASTY & BILATERAL TURBINATE REDUCTION [51290 (CPT ) +1 more] 01/02/2026 2:00 PM EDT Office Visit Adult Medicine - [place] [address] [place] [phone] Tata Castro MD [address] [place] [address] Scheduled Procedures Name Priority Associated Diagnoses Date/Ti me SEPTOPLASTY Deviated nasal septum 09/13/2025 8:45 AM EST Health Maintenance Due Date Last Done Comments Diabetes: Annual Foot Exam 1964 RSV Immunization Adult Patients (1 - Risk 50-74 years 1-dose series) 2004 Zoster Vaccines (1 of 2) 2004 Medicare Annual Wellness Visit 09/11/2023 Diabetes: Annual Retina Eye Exam 09/01/2024 09/01/2023 COVID-19 Vaccine ( season) 2025 01/17/2021 Diabetes: Blood Sugar Control Test (HGBA1C) 12/27/2025 06/29/2025, 03/29/2025, 07/29/2024, Additional history exists Diabetes: Annual Urine Albumin-Creatinine Ratio (uACR) 06/29/2026 06/29/2025, 07/29/2024, 06/03/2024, Additional history exists Diabetes: Annual GFR (Glomerular Filtration Rate) 06/29/2026 06/29/2025, 03/29/2025, 07/29/2024, Additional history exists Hypertension/CHF/CAD Annual BMP Blood Test 06/29/2026 06/29/2025, 03/29/2025, 07/29/2024, Additional history exists Social Influencers of Health Screening 07/03/2026 07/03/2025 Falls Risk Assessment 07/04/2026 07/04/2025 , 07/04/2025, 03/29/2025, Additional history exists Cholesterol Screening (Lipid Panel) 06/29/2030 06/29/2025, 07/29/2024, 06/03/2024, Additional history exists Colorectal Cancer Screening: Colonoscopy 01/25/2031 01/25/2021 DTaP,Tdap,and Td Vaccines (4 - Td or Tdap) 03/13/2033 03/13/2023, 10/13/2008, 10/13/2008 Hepatitis C Screening Completed 03/13/2023, 021 Pneumococcal Vaccine: 50+ Years Completed 03/29/2025, 12/24/2020, 09/28/2012 Influenza Vaccine Completed 06/20/2025, , 09/24/2023, Additional history exists Depression Screening Completed 07/04/2025 HIB Vaccines Aged Out No longer eligi [...] Procedure Name Priority Date/Time Associated Diagnosis Comments COMPREHENSIVE METABOLIC PANEL Routine 06/29/2025 1:18 PM EST Routine general medical examination at a health care facility Type 2 diabetes mellitus with diabetic microalbuminuria, without long-term current use of insulin ([facility] V24, [facility] V28) Primary hypertension Class 2 severe obesity with serious comorbidity and body mass index (BMI) of 39.0 to 39.9 in adult, unspecified obesity type LIPID PANEL WITH REFLEX TO DIRECT LDL Routine 06/29/2025 1:18 PM EST Routine general medical examination at a health care facility Type 2 diabetes mellitus with diabetic microalbuminuria, without long-term current use of insulin (CMS/HCC V24, [facility] V28) Primary hypertension Class 2 severe obesity with serious comorbidity and body mass index (BMI) of 39.0 to 39.9 in adult, unspecified obesity type MICROALBUMIN CREATININE URINE RATIO Routine 06/29/2025 1:18 PM EST Routine general medical examination at a [facility] Type 2 diabetes mellitus with diabetic microalbuminuria, without long-term current use of insulin ([facility] V24, [facility] V28) Primary hypertension Class 2 severe obesity with serious comorbidity and body mass index (BMI) of 39.0 to 39.9 in adult, unspecified obesity type HEMOGLOBIN A1C Routine 06/29/2025 1:18 PM EST Routine general medical examination at a [facility] Type 2 diabetes mellitus with diabetic microalbuminuria, without long-term current use of insulin ([facility] V24, [facility] V28) Primary hypertension Class 2 severe obesity with serious comorbidity and body mass index (BMI) of 39.0 to 39.9 in adult, unspecified obesity type DIABETES EYE EXAM Routine 09/01/2023 HEPATITIS C SCREENING Routine 03/13/2023 from Last 3 Months or Most Recently Relevant to Health Maintenance Results * (ABNORMAL) Lipid panel with reflex to direct LDL (06/29/2025 1:18 PM EST) [facility] Signature Cholesterol 200 0 - 200 mg/dL LAB CHEMISTRY METHOD 06/29/2025 4:16 PM [facility] Triglycerides 210(H) 0 - 150 mg/dL LAB CHEMISTRY METHOD 06/29/2025 4:16 PM [facility] HDL 47 >=40 mg/dL LAB CHEMISTRY METHOD 06/29/2025 4:16 PM EST [facility] LDL Calculated 111(H) 0 - 100 mg/dL LAB CHEMISTRY METHOD 06/29/2025 4:16 PM [facility] Comment:Estimated LDL Calcul ated using equation: Total cholesterol - HDL cholesterol - (Triglycerides/5) VLDL Cholesterol Hever 42 mg/dL LAB CHEMISTRY METHOD 06/29/2025 4:16 PM EST [facility] Non HDL Chol. (LDL+VLDL) 153(H) <145 mg/dL LAB CHEMISTRY METHOD 06/29/2025 4:16 PM EST [facility] Chol/HDL Ratio 4.3 0.0 - 4.4 LAB CHEMISTRY METHOD 06/29/2025 4:16 PM [facility] Blood Venous blood specimen / Unknown Venipuncture / Unknown 06/29/2025 1:18 PM EST 06/29/2025 1:18 PM EST us Parth ZUNIGA LAB BLOOD ORDERABLES Final Re sult [facility] [address] [place] [address], [place] [phone] * (ABNORMAL) Microalbumin creatinine urine ratio (06/29/2025 1:18 PM EST) Creatinine, Urine 61.0 mg/dL LAB CHEMISTRY METHOD 06/29/2025 5:42 PM [facility] Microalb, Ur 24.8 0.0 - 29.0 mg/L LAB CHEMISTRY METHOD 06/29/2025 5:42 PM EST [facility] Microalb/Creat Ratio 41(H) <30 mg/g creat LAB CHEMISTRY METHOD 06/29/2025 5:42 PM EST [facility] Urine Urine specimen obtained by clean catch procedure / Unknown Non-blood Collection / Unknown 06/29/2025 1:18 PM EST 06/29/2025 1:18 PM EST us Parth ZUNIGA LAB URINE ORDERABLES Final Re sult [facility] [address] [place] [address], [place] [phone] * (ABNORMAL) Hemoglobin A1c (06/29/2025 1:18 PM EST) Hemoglobin A1C 9.6(H) <6.5 % LAB CHEMISTRY METHOD 06/29/2025 8:44 PM EST [facility] Mean Bld Glu Estim. 229 mg/dL LAB CHEMISTRY METHOD 06/29/2025 8:44 PM [facility] Blood Venous blood specimen / Unknown Venipuncture / Unknown 06/29/2025 1:18 PM EST 06/29/2025 1:18 PM EST us Parth ZUNIGA LAB BLOOD ORDERABLES Final Re sult [facility] [address] [place] [address], [place] [phone] * (ABNORMAL) Comprehensive metabolic panel (06/29/2025 1:18 PM EST) Sodium 137 133 - 145 mmol/L LAB CHEMISTRY METHOD 06/29/2025 4:16 PM [facility] Potassium 4.2 3.5 - 5.5 mmol/L LAB CHEMISTRY METHOD 06/29/2025 4:16 PM [facility] Chloride 99 96 - 110 mmol/L LAB CHEMISTRY METHOD 06/29/2025 4:16 PM [facility] CO2 33(H) 21 - 32 mmol/L LAB CHEMISTRY METHOD 06/29/2025 4:16 PM [facility] Anion Gap 5 3 - 11 LAB CHEMISTRY METHOD 06/29/2025 4:16 PM [facility] Glucose 224(H) 70 - 100 mg/dL LAB CHEMISTRY METHOD 06/29/2025 4:16 PM [facility] BUN 8 5 - 25 mg/dL LAB CHEMISTRY METHOD 06/29/2025 4:16 PM [facility] Creatinine 0.98 0.70 - 1.30 mg/dL LAB CHEMISTRY METHOD 06/29/2025 4:16 PM [facility] eGFR 83 >=60 mL/min/1. 73m2 LAB CHEMISTRY METHOD 06/29/2025 4:16 PM [facility] Comment:Calculation based on the Chronic Kidney Disease Epidemiology Collaboration (CKD-EPI) equation refit without adjustment for race. BUN/Creatinine Ratio 8.2 LAB CHEMISTRY METHOD 06/29/2025 4:16 PM [facility] Calcium 9.6 8.5 - 10.5 mg/dL LAB CHEMISTRY METHOD 06/29/2025 4:16 PM [facility] AST (SGOT) 23 10 - 42 unit/L LAB CHEMISTRY METHOD 06/29/2025 4:16 PM [facility] ALT (SGPT) 57 10 - 60 unit/L LAB CHEMISTRY METHOD 06/29/2025 4:16 PM [facility] Alkaline Phosphatase 92 42 - 121 unit/L LAB CHEMISTRY METHOD 06/29/2025 4:16 PM [facility] Total Protein 7.2 6.0 - 8.0 g/dL LAB CHEMISTRY METHOD 06/29/2025 4:16 PM [facility] Albumin 3.9 3.2 - 5.0 g/dL LAB CHEMISTRY METHOD 06/29/2025 4:16 PM [facility] Total Bilirubin 0.5 0.0 - 1.4 mg/dL LAB CHEMISTRY METHOD 06/29/2025 4:16 PM [facility] Blood Venous blood specimen / Unknown Venipuncture / Unknown 06/29/2025 1:18 PM EST 06/29/2025 1:18 PM EST Parth ZUNIGA LAB BLOOD ORDERABLES Final Re sult [facility] [address] [place] [address], * Diabetes Eye Exam (09/01/2023) Diabetes: Annual Retina Eye Exam Abstracted Historical Provider HEALTH MAINTENANCE Final Result * Hepatitis C Screening (03/13/2023) Hepatitis C Screening Abstracted Historical Provider HEALTH MAINTENANCE Final Result from Last 3 Months or Most Recently Relevant to Health Maintenance Insurance [employer] MEDICARE Care Teams Dairy Tester Relationship Specialty Start Date End Date Tata Castro MD [address] [place] [phone] PCP - General 12/23/22
--- OUTSIDE RECORDS SUMMARY | 2025-08-07 17:04 | XMS_ITS | Clinical Summary ---
Author Organization [facility] Address [address] [place], [place] [id number] Phone Care Team Providers Care Supervisor Stage Carpentry Name Role Phone Gabriel Horton MD Unavailable [phone] Gabriel Horton MD Primary Care Provider Allergies No known active allergies Medications FREESTYLE [...] conservative management at home including rest, hydration, vxhx-vgg-detztks cold flu medications as needed. Patient follow-up [...] will adjust glipizide accordingly. Declined referral to community educator. Patient follow-up in 3 months Assessment & [...] 0.75 weekly injections. Patient has follow-up with community educator in January. Monitor blood sugars before breakfast before dinner daily. Bring readings with him to his appointment. Discussed diabetic diet exercise weight loss. Patient has follow-up with me in March Assessment & Plan (12/25/2020 5:26 PM EDT): Patient 2 years ago A1c 3.0 diagnosed with diabetes. Started on Metformin follow community educator once and never followed up in 2 [...] Recommend he have a follow-up appointment with community educator. 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 on file Not on file Not [...] Health Maintenance Due Date Last Done Comments BLOOD PRESSURE 1954 COLOGUARD 1999 FIT TEST 1999 FOBT 1999 SIGMOIDOSCOPY 1999 VIRTUAL COLONOSCOPY 1999 RSV VACCINE (1 - Risk 50-74 years 1-dose series) 2004 ZOSTER VACCINES (1 of 2) 2004 Adult Td,Tdap Booster 10/13/2018 10/13/2008 DIABETIC EYE EXAM 11/05/2018 PNEUMOCOCCAL VACCINES (50+ years) (2 of 2 - PCV) 12/24/2021 12/24/2020, 09/28/2012 HEMOGLOBIN A1C 10/03/2022 07/03/2022, 03/17, 03/25/2022, Additional history exists DEPRESSION SCREENING 03/24/2023 03/24/2022 LIPID PANEL 03/27/2023 [...] - 5.8 % [facility] Other 07/03/2022 4:13 PM EST Johnathan BECKHAMP LAB POCT ENTER/ED IT ORDERABLES Final Result [facility] [address] [place] [address], [facility] * (ABNORMAL) Microalbumin/creatinine ratio, random urine (03/27/2022 3:13 PM EDT) [facility] Urine Microalbumin 41.2(H) 0 - 30 mg/L [facility] URINE CREATININE 69 30 - 125 mg/dL [facility] MICROALB/CRE RATIO 59.7(H) <30.0 mg/g Cre [facility] Urine (Urine) 03/27/2022 3:1 3 PM EDT 03/27/2022 3:46 PM EDT Johnathan Hart [facility] URINE ORDERAB LES Final Result Performing Organization Address City/[facility]/ZIP Co de Phone Number [address] * Lipid panel (03/27/2022 3:13 PM EDT) [facility] HDL 42 >39 mg/dL [facility] CHOLESTEROL 159 0 - 199 mg/dL [facility] TRIGLYCERIDES 91 0 - 150 mg/dL [facility] LDL 99 50 - 129 mg/dL [facility] NON-HDL CHOLESTEROL 117 mg/dL [facility] Comment:Reference Range: The non-HDL Cholesterol value should not exceed the desired LDL-C by more than 30 mg/dl. Blood 03/27/2022 3:13 PM EDT 03/27/2022 3:33 PM EDT Johnathan Hart [facility] BLOOD BKR ORD ERABLES Final Result [address] * COLONOSCOPY FOR RESULT ENTRY ONLY (01/25/2021) [facility] Colonoscopy Normal Comment:MARIA DE JESUS-Juany Historical Provider HEALTH MAINTENANCE Final Result * Hepatitis C antibody, qualitative (12/25/2020 1:50 PM EDT) HCV ANTIBODY Non-Reacti ve Non-Reacti ve [facility] Blood 12/25/2020 1:50 PM EDT 12/25/2020 2:05 PM EDT Johnathan Hart [facility] BLOOD BKR ORD ERABLES Final Result [facility] [address] [place] [address], [facility] from Last 3 Months or Most Recently Relevant to Health Maintenance Insurance MEDICARE PART A & B [facility] MEDICARE REPLACEMENT MEDICARE PART A & B MEDICARE REPLACEMENT MEDICARE PART A & B MEDICARE REPLACEMENT MEDICARE PART A & B MEDICARE REPLACEMENT MEDICARE PART A & B MEDICARE REPLACEMENT MEDICARE PART A & B [facility] MEDICARE REPLACEMENT MEDICARE PART A & B [facility] MEDICARE REPLACEMENT MEDICARE PART A & B [facility] MEDICARE REPLACEMENT MEDICARE PART A & B [facility] MEDICARE REPLACEMENT Care Teams Supervisor Stage Carpentry Relationship Specialty Start Date End Date Gabriel Horton MD [address] [place] [id number] [email or web address] PCP - General Internal Medicine 03/26/21 Gabriel Horton MD [address] [place] [phone] [email or web address] Internal Medicine 08/25/19 Additional Source Comments The information contained in this document represents components of the legal health record. It is not the complete legal health record.[facility]
--- OUTSIDE RECORDS SUMMARY | 2025-08-07 17:04 | XMS_ITS | Continuity of Care Document ---
Author Organization [place] - [facility], [facility] Address [address] [place] [address] Care Team Providers Care Field Service Tech Name Role Phone WILLIAM BURROWS Referring Provider Assessment Encounter Date Assessment Date Assessment LastModified [...] will also receive contact information for the project controls scheduler and instructions to arrange the sleep study [...] 10:19:26 submucous resection inferior turbinate (SURG) 2024 025 [email or web address] Not available 06/12/2025 10:19:26 Imaging polysomno gram - likely JAUN R, witnessed apneas 2024 025 [email or web address] [facility], [address] [facility], [facility] [address], [place], [address], 07/11/2025 12:32:31 Medication Orders None recorded. Patient TargetsNo targets recorded. Patient Instructions Encounter Date Encounter Id Patient Instructions Last Modified By Organization Details Last Modified Time 06/12/2025 [id number] nasal septum repair: before your surgery [email or web address] Not available 06/12/2025 10:12:42 - Schedule a sleep study at your earliest convenience. - Contact the project controls scheduler to arrange the procedure. - Follow up [...] Organization Details Recorded Time Deviated nasal septum 982993547 Active 2024 Norris Almendarez, [address] [employer] [place], [address], [place] - [facility] 5 08:51:09 Hypertrophy of nasal turbinates 44953926 Active 2024 Norris Almendarez, DO [address] [facility], [address], [employer] [place], [address], [place] - [facility] 08:51:10 Nasal congestion 97579072 Active 2024 Norris Almendarez, DO [address] [facility] [address] [facility], [employer] [place], [address], [place] - [facility] 08:51:12 Finding related to sleep 750024869 Active 2024 Norris Almendarez, DO [address] [facility], [address], [employer], [address], [place] - [facility] 5 10:11:58 Nasal obstruction 604658874 Active 2024 Norris Almendarez, DO [address] [facility] [address] [facility], [place], [address], [facility] - [facility] 10:12:39 Problem Notes None recorded. Medical Equipment [...] Not Available No t Available amoxicillin 875 mg-potassiu m clavulanate 125 mg tablet TAKE 1 [...] Updated DateTime 06/12/2025 165.1 cm 38.3 kg/m2 522049.25 g GATO VELA [place] - [facility] 06/12/2025 09:55:26 Social History None recorded. Functional Status None recorded. Mental Status None recorded. Family History Nothing Reported. Medical History No medical history recorded. Past Encounters Encounter ID Performer Location Encounter Start Date Encounter Closed Date Diagnosis/Indication Diagnosis SNOMED-CT Code Diagnosis ICD10 Code Diagnosis IMO Codes Diagnosis Note [id number] Norris Almendarez, DO [facility] of [address] [phone] 06/12/2025 09:43:27 06/12/2025 10:14:03 Deviated nasal septum 352918392 J34.2 [id number] Hypertroph y of nasal turbinates 05405344 J34.3 2532 Nasal congestion 5616193 0 R09.81 85011 Finding re lated to sleep 572610629 G47.30 571924 Nasal obstruction 270247 000 J34.89 48760 Health Concerns Section Related Observation LastModified by Organization Detai ls LastModified Time None Recorded Concern Status LastModified by Organization Details LastModified Time None Recorded Payers Encounter Date Sequence Insurance Name Policy Number Policy Varner Covered Member ID Varner Member ID Guarantor Name 06/12/2025 1 [facility] (MEDICARE REPLACEMENT/A DVANTAGE - PPO) [id number] Boo Quinn [id number] Boo Quinn Notes Date Note Type Note [...] or other sinus-related symptoms. Norris Almendarez, [address], [address], [facility] - [facility] 06/12/2025 10:13:07
== END 2025-08-07 14:58 | disposition home or self-care (01) ==
LOC: HO.HPHYS 13:38
PROVIDERS: PCP Family Medicine; Visit Provider Physician Assistant
DX: M70.61 Trochanteric bursitis, right hip (principal); M17.11 Unilateral primary osteoarthritis, right knee
CPT/HCPCS: 20610

== ENCOUNTER → 2025-08-07 13:38 | Outpatient (BNVA) | payer MEDICARE, SELFPAY | PROVIDERS: PCP Family Medicine; Visit Provider Physician Assistant | DX: M70.61 Trochanteric bursitis, right hip (principal); M17.11 Unilateral primary osteoarthritis, right knee | CPT/HCPCS: 20610; J2003; J3301 ==